=== PATIENT | male | born 1960 | race Caucasian/White ===

== ENCOUNTER 2018-06-27 15:30 | Outpatient (RCR) | payer MEDICARE, MEDICAID, SELFPAY ==
--- NOTE | 2018-03-21 17:32 | HP.PTEVAL ---
Patient's Visit Information SERA RAMSEY is a 57 year old M referred to Physical Therapy by David Chaney with a diagnosis of BACK AND LEG PAIN. Date of Evaluation: 03/21/18 Physical Therapist: Vladimir Elliott PT, - Visit Plan Frequency: 2x /Week Duration: 4 Weeks Plan: POSTURAL EX'S ,DLS ,LE FLEXABLITY NUSTEP - Subjective Subjective: This 57 y/o male presents to physical therapy with back and leg pain . Patient has low back pain entire. Patient has pain symtrical lumbar . Pain described as dull pain ocassional sharp pain. Patient has had epidural injection in past. Patient has cerebral palsey affects leg. Symptoms worse with walking ,standing ,weather ,lifting. Denies parathesia/tingling. Patient sleeping okay at night. Lumbar paion affects QOL and function/demands. VOCATION: [place] [employer]. SOCIAL: single - Pain Bilateral Back Pain Intensity (Out of 10): 2 Pain Intensity Range: 10 - Objective POSTURE: foward posture,valgus knee ER right greater than left ,foot ER ,pelvix assymtries,right leg shorter. GAIT: foward posture trunk flexed ,ER leg and right foot ,decrease hip/knee flexion drags right leg greater than left LBQC. PALPATION: unremarkable. NEURO: hyperreflexia achilles ,patella ,denies parathesia,increase tone hams. FLEXABLITY: hams severe tight. MMT: quads/hams 3/5,hip flexors 3-/5 ,ankle DF 4-/5 - Goals Goal 1:: Independant with HEP Goal Time Frame: 4-6 Weeks Goal 2:: Improve gait with less lumbar pain with community distances Goal Time Frame: 4-6 Weeks Goal 3:: Patient decrease lumbar pain by 50% or greater to improve function Goal Time Frame: 4-6 Weeks Goal 4:: Patient to be able to perform ADL'S and job demands with min limiation with less pain Goal Time Frame: 4-6 Weeks Goal 5:: Patient to improve SUE lumbar score by 5 points or greater . Goal Time Frame: 4-6 Weeks - Rehabilitation Potential Physical Therapy Diagnosis: This patient has symmtrical lumbar pain with contributing factor comorbities with CP along with uses LBQC for gait with decrease strength ,posture thus benifit from skilled PT Rehabilitation Potential: Good - Anticipated Interventions Patient/Client Instruction: Educate patient on: Condition, Plan of Care For the Purpose of:: To decrease pain, To increase ROM, To improve muscle performance and motor function, To improve ability to perform ADL's, To increase tolerance to activity/condition/position, To improve ability of physical actions for home/community/work/leisure, To increase flexibility/ROM, To improve ability to perform tasks related to life management Therapeutic Exercise to Include: Strength training, Flexibilty training, Dynamic Lumbar Stabilization For the Purpose of:: To decrease pain, To improve muscle performance and motor function, To improve ability to perform ADL's, To increase tolerance to activity/condition/position, To improve ability of physical actions for home/community/work/leisure, To decrease soft tissue restriction, To increase flexibility/ROM, To improve ability to perform tasks related to life management IF ES: Yes Cryotherapy (ice pack, ice massage): Yes Thermo therapy (hot pack): Yes Ultrasound (thermal/non thermal): Yes For the Purpose of:: To decrease pain, To increase ROM, To improve nutrient delivery to tissue, To increase oxygenation perfusion, To improve health of tissue, To decrease soft tissue restriction, To improve ability to perform tasks related to life management Thank you for the opportunity to evaluate your patient. For Medicare and Medicare HMO plans, please review the plan of care and approve it. It will need to be FAXED BACK to us at [phone] for Medicare purposes. Please let me know if there are questions or concerns regarding this plan of care. Physician Signature: Date:
--- NOTE | 2018-04-21 17:12 | HP.PTREVAL_ITS ---
David Chaney MD, It has been my pleasure to treat SERA RAMSEY over the last 6 visits for BACK AND LEG PAIN. Please see the progress note below for an update on the physical therapy plan of care! Subjective: Patient stated PT has helped with low back pain. with walking and standing Objective/Function: POSTURE: mod foward posture ,ER right leg ,calcaneal valgus bilateral ankles. GAIT: mild foward posture unsteady ER ,FOOT ER ,trunk extended ,SLOW UNSTEADY ,HIPS/KNEES FLEXED. MMT: QUADS/HAMS 3+/5 RIGHT,LEFT QUADS/HAMS 4-/5,ANKLE 4-/5. FLXABLITY: hams mod tight Plan Plan: Continue with POC interventions 2xweek for 4weeks strengthening. Goals Goal 1:: Independant with HEP Goal Time Frame: 4-6 Weeks Goal Progress: Progressing Goal 2:: Improve gait with less lumbar pain with community distances Goal Time Frame: 4-6 Weeks Goal Progress: Progressing Goal 3:: Patient decrease lumbar pain by 50% or greater to improve function Goal Time Frame: 4-6 Weeks Goal Progress: Progressing Goal 4:: Patient to be able to perform ADL'S and job demands with min limiation with less pain Goal Time Frame: 4-6 Weeks Goal Progress: Progressing Goal 5:: Patient to improve SUE lumbar score by 5 points or greater . Goal Time Frame: 4-6 Weeks Goal Progress: Progressing Anticipated Interventions Patient/Client Instruction: Educate patient on: Condition, Plan of Care For the Purpose of:: To decrease pain, To increase ROM, To improve muscle performance and motor function, To improve ability to perform ADL's, To increase tolerance to activity/condition/position, To improve ability of physical actions for home/community/work/leisure, To increase flexibility/ROM, To improve ability to perform tasks related to life management Therapeutic Exercise to Include: Strength training, Flexibilty training, Dynamic Lumbar Stabilization For the Purpose of:: To decrease pain, To improve muscle performance and motor function, To improve ability to perform ADL's, To increase tolerance to ac tivity/condition/position, To improve ability of physical actions for home/community/work/leisure, To decrease soft tissue restriction, To increase flexibility/ROM, To improve ability to perform tasks related to life management IF ES: Yes Cryotherapy (ice pack, ice massage): Yes Thermo therapy (hot pack): Yes Ultrasound (thermal/non thermal): Yes For the Purpose of:: To decrease pain, To increase ROM, To improve nutrient delivery to tissue, To increase oxygenation perfusion, To improve health of tissue, To decrease soft tissue restriction, To improve ability to perform tasks related to life management Please do not hesitate to contact me at [phone] by phone or if you have questions or concerns regarding this new plan of care! Sincerely, Vladimir Elliott, PT, Cert MDT, OCS
--- NOTE | 2018-05-30 16:06 | HP.PTREVAL ---
David Chaney MD, It has been my pleasure to treat SERA RAMSEY over the last 13 visits for BACK AND LEG PAIN. Please see the progress note below for an update on the physical therapy plan of care! Subjective: Overall ,feeling stronger . Walking better. PT has helped back pain. Back pain can increase with higher. Objective/Function: POSTURE: mild foward posture,hips/knees flexed ,bilateral knee valgus. GAIT: ambulates with bilateral knee valgus ,calaneal valgus slow unsteady. MMT: quads/hams right 3+/5,left 4-/5,ankle 2/5,hip flexion 3+/5. LUMBAR ROM: flexion mod loss,extension mod/severe loss. FLEXABLITY: mod tight Plan Plan: cont with POC interventions 2x week for 4weeks Goals Goal 1:: Independant with HEP Goal Time Frame: 4-6 Weeks Goal Progress: Progressing Goal 2:: Improve gait with less lumbar pain with community distances Goal Time Frame: 4-6 Weeks Goal Progress: Progressing Goal 3:: Patient decrease lumbar pain by 50% or greater to improve function Goal Time Frame: 4-6 Weeks Goal Progress: Progressing Goal 4:: Patient to be able to perform ADL'S and job demands with min limiation with less pain Goal Time Frame: 4-6 Weeks Goal Progress: Progressing Goal 5:: Patient to improve SUE lumbar score by 5 points or greater . Goal Time Frame: 4-6 Weeks Goal Progress: Progressing Anticipated Interventions Patient/Client Instruction: Educate patient on: Condition, Plan of Care For the Purpose of:: To decrease pain, To increase ROM, To improve muscle performance and motor function, To improve ability to perform ADL's, To increase tolerance to activity/condition/position, To improve ability of physical actions for home/community/work/leisure, To increase flexibility/ROM, To improve ability to perform tasks related to life management Therapeutic Exercise to Include: Strength training, Flexibilty training, Dynamic Lumbar Stabilization For the Purpose of:: To decrease pain, To improve muscle performance and motor function, To improve ability to perform ADL's, To increase tolerance to activity/condition/position, To improve ability of physical actions for home/community/work/leisure, To decrease soft tissue restriction, To increase flexibility/ROM, To improve ability to perform tasks related to life management IF ES: Yes Cryotherapy (ice pack, ice massage): Yes Thermo therapy (hot pack): Yes Ultrasound (thermal/non thermal): Yes For the Purpose of:: To decrease pain, To increase ROM, To improve nutrient delivery to tissue, To increase oxygenation perfusion, To improve health of tissue, To decrease soft tissue restriction, To improve ability to perform tasks related to life management Please do not hesitate to contact me at [phone] by phone or if you have questions or concerns regarding this new plan of care! Sincerely, Vladimir Elliott, PT, Cert MDT, OCS
--- NOTE | 2018-08-10 13:07 | HP.PT.NRP ---
HP - Discharge Summary (1) - Patient Information SERA RAMSEY was seen in my office for initial evaluation on 03/21/18. The following Plan of Care was established for this patient: Initial Frequency: 2x /Week Initial Duration: 4 Weeks - Anticipated Interventions Patient/Client Instruction: Educate patient on: Condition, Plan of Care For the Purpose of:: To decrease pain, To increase ROM, To improve muscle performance and motor function, To improve ability to perform ADL's, To increase tolerance to activity/condition/position, To improve ability of physical actions for home/community/work/leisure, To increase flexibility/ROM, To improve ability to perform tasks related to life management Therapeutic Exercise to Include: Strength training, Flexibilty training, Dynamic Lumbar Stabilization For the Purpose of:: To decrease pain, To improve muscle performance and motor function, To improve ability to perform ADL's, To increase tolerance to activity/condition/position, To improve ability of physical actions for home/community/work/leisure, To decrease soft tissue restriction, To increase flexibility/ROM, To improve ability to perform tasks related to life management IF ES: Yes Cryotherapy (ice pack, ice massage): Yes Thermo therapy (hot pack): Yes Ultrasound (thermal/non thermal): Yes For the Purpose of:: To decrease pain, To increase ROM, To improve nutrient delivery to tissue, To increase oxygenation perfusion, To improve health of tissue, To decrease soft tissue restriction, To improve ability to perform tasks related to life management This patient was last seen in our office 06/27/18. Pertinent comments regarding their Physical therapy will appear below: Patient seen for PT for back pain focusing on DLS,POSTURE ,LE STRENGTHENING ,THUS IS D/C TO HEP. At this point I will be discontinuing this patient from physical therapy. I would be happy to see this patient again in the future if found appropriate by the physician. Thank you! Vladimir Elliott, PT, Cert MDT, OCS
== END 2018-06-27 19:00 | disposition home or self-care (01) ==
LOC: PT 15:30
PROVIDERS: Family Provider Internal Medicine; PCP Internal Medicine; Referring Provider Anesthesiology Pain Medicine; Visit Provider Anesthesiology Pain Medicine
DX: M54.5 Low back pain (principal); M79.606 Pain in leg, unspecified
CPT/HCPCS: 97035; 97110; 97162; 97530

== ENCOUNTER → 2020-08-29 11:59 | Outpatient (CLI) | payer MEDICARE, SELFPAY ==
[2014-04-06 13:12] VITALS: BMI 29.1
[2020-08-29 12:32] LABS: Absolute Lymphocyte Count 1.28 X10^3/uL (0.83-4.51); Absolute Neutrophil Count 3.4 X10^3/uL (2.0-7.7); Basophil# 0.08 X10^3/uL; Basophil% 1.5 % (0-1); Eosinophil# 0.17 X10^3/uL; Eosinophils% 3.1 % (0-5); Hematocrit 44.8 % (40-54); Lymphocyte # 1.28 X10^3/ul (0.83-4.51); Lymphocyte % 23.7 % (19-41); Mean Corp Hgb Conc 33.5 g/dL (32-36); Mean Corpuscular Hgb 27.9 pg (27.0-32.0); Mean Corpuscular Volume 83.4 fL (80-94); Mean Platelet Vol. 10.6 fl (6.2-12.0); Monocyte# 0.49 X10^3/uL; Monocyte% 9.1 % (0-10); NRBC Flagged by Analyzer 0 % (0-5); Neutrophil # 3.37 X10^3/uL (2.7-7.7); Neutrophil % 62.4 % (47-70); Platelet Count 296 K/mm3 (150-450); RBC Distribution Width SD 39.4 fl (35.1-43.9); Red Blood Count 5.37 M/mm3 (4.6-6.2); White Blood Count 5.4 K/mm3 (4.4-11.0)
[2020-08-29 13:13] LABS: ALB/GLOB Ratio 1.5 RATIO (0.9-2.4); AST(SGOT) 16 U/L (15-37); Alanine Aminotransfer ALT/SGPT 24 U/L (16-61); Albumin, Serum 4.1 g/dL (3.2-5.0); Alkaline Phosphatase 102 U/L (45-117); Anion Gap 4 (5-15); BUN 22 mg/dL (7-18); BUN/Creat Ratio 27.6 RATIO (10-20); Calcium,Total 9.4 mg/dL (8.5-10.1); Chloride 108 mmol/L (98-107); EST Glomerular Filtration Rate 106 mL/min (>60); Est Glom Filt Rate - Afr Amer 128 mL/min (>60); Globulin 2.8 g/dL (2.2-4.2); Glucose 101 mg/dL (74-106); PSA,Total - Annual Screen 0.83 ng/mL (0.00-4.00); Potassium 3.8 mmol/L (3.5-5.1); Protein, Total 6.9 g/dL (6.4-8.2); Sodium Level 141 mmol/L (136-145); Thyroid Stim Hormone (TSH) 1.84 uIU/mL (0.358-3.74)
[2020-08-29 13:40] LABS: Hepatitis C Antibody Non-Reactive (Nonreactive)
== END ==
PROVIDERS: PCP Family Medicine Geriatric Medicine; Visit Provider Family Medicine Geriatric Medicine
DX: Z00.00 Encounter for general adult medical examination without abnormal findings (principal); R53.83 Other fatigue; Z12.5 Encounter for screening for malignant neoplasm of prostate
CPT/HCPCS: 36415; 80053; 84153; 84443; 85025; 86803; G0103

== ENCOUNTER → 2020-10-02 11:34 | Outpatient (CLI) | payer MEDICARE, SELFPAY ==
[2014-04-06 13:12] VITALS: BMI 29.1
--- NOTE | 2020-10-02 11:39 | RAD_ITS ---
STUDY: X-RAY - ABDOMEN/PELVIS REASON FOR EXAM: Male, 60 years old. Chronic diarrhea. TECHNIQUE: Single AP view of the abdomen / pelvis. COMPARISON: None. FINDINGS: Normal visualized lung bases. There is an unremarkable bowel gas pattern. There is no demonstrated free abdominal air. The visualized liver, spleen and kidneys are grossly normal in size and morphology. Normal soft tissue structures. Rotatory levoscoliosis of the lumbar spine. Mild arthrosis of hips. RAD/Abdomen Single View IMPRESSION: No acute abnormality of the lower chest, abdomen and pelvis. Electronically Signed: Cristobal Degroot MD at 9:15 EDT , Service support ,
== END ==
PROVIDERS: PCP Family Medicine Geriatric Medicine; Referring Provider Family Medicine Geriatric Medicine; Visit Provider Family Medicine Geriatric Medicine
DX: R19.7 Diarrhea, unspecified (principal)
CPT/HCPCS: 74018

== ENCOUNTER → 2020-10-21 14:49 | Outpatient (CLI) | payer MEDICARE, SELFPAY ==
[2014-04-06 13:12] VITALS: BMI 29.1
--- NOTE | 2020-10-21 14:51 | CT_ITS ---
STUDY: LOW DOSE CT LUNG CANCER SCREENING REASON FOR EXAM: Male, 60 years old. 30 year smoker, 1 pack per day, quit smoking x10 years RADIATION DOSAGE (If Supplied By Facility): CTDIvol = ( 3.02 ) mGy, DLP = ( 99.68 ) mGycm TECHNIQUE: No contrast was administered. Low dose technique was utilized (average mAS-38 and kVp 120). 1.25 mm axial source images with a slice interval of 1.25-mm were reconstructed in lung windows. 2.5 mm axial source images with a slice interval of 2.5-mm were reconstructed in lung windows. 5.0 mm axial source images with a slice interval of 5.0-mm were reconstructed in soft tissue windows. Nodule measured using lung windows on PACS and/or independent workstation with automated measurement of minimum and maximum diameter. Nodule measurement reported as average diameter rounded to the nearest whole number. Growth is defined as an increase ins size of greater than 1.5 mm. COMPARISON: None. FINDINGS: Lung windows do not show evidence of a suspicious noncalcified mass or nodule. No organized infiltrate. There is bibasilar atelectasis. Heart size is normal, there are calcified coronary vessels Bony structures show degenerative change. CT/Low Dose CT Lung Screening IMPRESSION: Lung-RADS category 2 - Continue annual screening with LDCT in 12 months. IMPORTANT NOTES FOR USE: ACR Lung-RADS Version 1.1 Assessment Categories Release Date: 2018 Category: Coded 0-4 bases on nodule(s) with highest degree of suspicion. Negative screen is defined as categories 1 and 2; a positive screen is defined as categories 3 and 4. Category 3 and 4A nodules that are unchanged on interval CT should be coded as category 2, and individuals returned to screening in 12 months. Category 4X: Category 3 or 4 nodules with additional imaging findings that increase the suspicion of lung cancer, such as spiculation, GGN that doubles in size in 1 year, enlarged lymph notes, etc. Category Modifiers: S (significant finding unrelated to lung cancer) Electronically Signed: Eligio Murdock MD at 16:25 EDT , Service support ,
== END ==
PROVIDERS: PCP Family Medicine Geriatric Medicine; Referring Provider Family Medicine Geriatric Medicine; Visit Provider Family Medicine Geriatric Medicine
DX: T65.222S Toxic effect of tobacco cigarettes, intentional self-harm, sequela (principal); F17.210 Nicotine dependence, cigarettes, uncomplicated
CPT/HCPCS: 71271

== ENCOUNTER → 2020-12-02 13:54 | Outpatient (CLI) | payer MEDICARE, SELFPAY ==
[2014-04-06 13:12] VITALS: BMI 29.1
[2020-12-02 15:24] LABS: Absolute Lymphocyte Count 1.63 X10^3/uL (0.83-4.51); Absolute Neutrophil Count 3.9 X10^3/uL (2.0-7.7); Basophil# 0.08 X10^3/uL; Basophil% 1.3 % (0-1); Eosinophil# 0.12 X10^3/uL; Eosinophils% 1.9 % (0-5); Hematocrit 46.8 % (40-54); Hemoglobin 15.5 g/dL (13.0-16.5); Lymphocyte # 1.63 X10^3/ul (0.83-4.51); Lymphocyte % 25.5 % (19-41); Mean Corp Hgb Conc 33.1 g/dL (32-36); Mean Corpuscular Hgb 27.6 pg (27.0-32.0); Mean Corpuscular Volume 83.4 fL (80-94); Mean Platelet Vol. 10.8 fl (6.2-12.0); Monocyte# 0.68 X10^3/uL; Monocyte% 10.6 % (0-10); NRBC Flagged by Analyzer 0 % (0-5); Neutrophil # 3.86 X10^3/uL (2.7-7.7); Neutrophil % 60.4 % (47-70); Platelet Count 322 K/mm3 (150-450); RBC Distribution Width CV 13.2 % (11.6-14.6); RBC Distribution Width SD 40.6 fl (35.1-43.9); Red Blood Count 5.61 M/mm3 (4.6-6.2); White Blood Count 6.4 K/mm3 (4.4-11.0)
[2020-12-02 16:07] LABS: ALB/GLOB Ratio 1.2 RATIO (0.9-2.4); AST(SGOT) 26 U/L (15-37); Alanine Aminotransfer ALT/SGPT 52 U/L (16-61); Albumin, Serum 3.8 g/dL (3.2-5.0); Alkaline Phosphatase 93 U/L (45-117); Anion Gap 4 (5-15); BUN 24 mg/dL (7-18); BUN/Creat Ratio 27.8 RATIO (10-20); Chloride 108 mmol/L (98-107); Creatinine, Serum 0.86 mg/dL (0.70-1.30); EST Glomerular Filtration Rate 96 mL/min (>60); Est Glom Filt Rate - Afr Amer 116 mL/min (>60); Globulin 3.3 g/dL (2.2-4.2); Glucose 83 mg/dL (74-106); Potassium 4.3 mmol/L (3.5-5.1); Protein, Total 7.1 g/dL (6.4-8.2); Sodium Level 141 mmol/L (136-145); Thyroid Stim Hormone (TSH) 1.54 uIU/mL (0.358-3.74)
== END ==
PROVIDERS: PCP Family Medicine Geriatric Medicine; Visit Provider Family Medicine Geriatric Medicine
DX: I10 Essential (primary) hypertension (principal)
CPT/HCPCS: 36415; 80053; 84443; 85025

== ENCOUNTER 2020-12-20 13:12 | Emergency (ER) | payer OTHER, MEDICARE, MEDICAID, SELFPAY ==
[2020-12-20 13:14] VITALS: BP 154/92; PULSE 68; RESP 16; TEMP 36.8; O2SAT 97; BMI 27.1
--- NOTE | 2020-12-20 14:37 | ED.VIS.FALL ---
HPI HPI - Fall History of Present Illness Chief Complaint: Fall Informant: patient and spouse/S.O. Narrative Narrative: Patient had a mechanical fall while doing vacuuming today. He states he does have stability and falls. He uses a walker for most activity but he was vacuuming without it. He was not syncopal. He did hit his head. He states he felt dazed for a moment but never lost consciousness. He is on no blood thinners. He never had nausea vomiting numbness tingling or weakness. His friend who is with him and known him for 16 years states that he is acting totally normally. Falling like this would not be uncommon for him. Nothing really makes his symptoms worse. Pressure on the area above his left eye did stop the bleeding. Past medical history includes BPH, high blood pressure and high cholesterol Medication list was reviewed. No known drug allergies. No recent surgeries. PFSH PFSH Home Medications metoprolol tartrate 25 mg PO BID 04/06/14 [History Last Taken Unknown] pravastatin 40 mg PO DAILY 12/20/20 [History Last Taken Unknown] tamsulosin 0.4 mg PO DAILY 12/20/20 [History Last Taken Unknown] Allergy/AdvReac Type Severity Reaction Status Date / Time No Known Allergies Allergy Verified 12/20/20 13:12 Social History Smoking Status: Unknown if ever smoked ROS ROS ED Constitutional Constitutional ED: Denies chills or fever(s) Eyes Eyes: Denies blurry vision, change in vision or diplopia ENT ENT ED: Denies ear pain or rhinorrhea Cardiovascular Cardiovascular: Denies palpitations Respiratory/Chest Respiratory/Chest: Denies cough or dyspnea Gastrointestinal Gastrointestinal: Denies abdominal pain, nausea or vomiting Genitourinary Genitourinary ED: Denies hematuria Musculoskeletal Musculoskeletal: Denies arthralgias, back pain or neck pain Integumentary Denies rash Neurologic Neurologic: Denies headache(s), paresthesias or weakness Hematologic/Lymphatic Hematologic/Lymphatic: Denies easy bleeding or easy bruising Allergic/Immunologic Allergic/Immunologic ED: Denies mouth swelling EXAM Physical Exam Const Vital Signs: 12/20/20 13:14 12/20/20 14:28 Temperature 98.2 F Temperature Source Temporal Pulse Rate 68 Respiratory Rate 16 Respiratory Effort Normal Non-Labored Respiratory Depth Normal Respiratory Pattern Normal Blood Pressure 154/92 H Blood Pressure Mean 112 Pulse Ox 97 Oxygen Delivery Method Room Air Room Air Positive well nourished and well developed General Appearance ED: well developed HEENT HEENT Narrative: Patient has a 2.5 cm laceration lateral and slightly superior to the tip of his left eyebrow. No active bleeding. There is no swelling. There is no step-off. No other signs of head trauma seen. No facial tenderness. No pain with jaw motion. Eyes PERRL and EOMs intact bilaterally Neck full ROM and supple General: Negative for tenderness Chest Wall inspection of chest normal Resp normal respiratory effort and clear to auscultation bilaterally Cardio regular rate and regular rhythm GI non-tender Palpation: soft Back/Spine no CVA tenderness Extremity normal to inspection and full ROM Psych mental status grossly normal Skin Skin Narrative: See above. Trauma: laceration MDM MDM MDM Narrative Medical decision making narrative: Procedure: Closure of laceration: I discussed options with patient. The area around laceration was scrubbed and cleaned. There was slight oozing. This was controlled with pressure. It was elected to close this with tissue adhesive. This was done in 3 separate layers. He tolerated this well. No further swelling. I did explain care and reasons to return. Patient had a mechanical fall. He has history of instability. He is not on blood thinners. He has no neurologic findings. Family finds him acting normally. I do not think CT is needed. Discharge Plan Triage Chief Complaint: Fall ED Provider: Reji Llanes Dx/Rx/DC Orders Clinical Impression: Fall from slip, trip, or stumble, Facial laceration Instructions: ED Mechanical Fall, ED Laceration: Skin Adhesive Prescriptions: No Action metoprolol tartrate 25 MG tablet 25 mg PO BID RF: 0 pravastatin 40 mg Tablet 40 mg PO DAILY RF: 0 tamsulosin 0.4 mg Capsule 0.4 mg PO DAILY RF: 0 Primary Care Provider: Claudio Martinez Chi Referrals: Claudio Martinez Chi, MD [Primary Care Provider] - 3-5 Days if not improving Disposition Disposition: Home, Self Care
[2020-12-20 14:55] VITALS: BP 150/87; PULSE 71; RESP 16; O2SAT 100
== END 2020-12-20 14:58 | disposition home or self-care (01) ==
LOC: ED 14:44
PROVIDERS: Emergency Provider Emergency Medicine; PCP Family Medicine Geriatric Medicine
DX: S01.81XA Laceration without foreign body of other part of head, initial encounter (principal); E78.00 Pure hypercholesterolemia, unspecified; I10 Essential (primary) hypertension; N40.0 Benign prostatic hyperplasia without lower urinary tract symptoms; W01.0XXA Fall on same level from slipping, tripping and stumbling without subsequent striking against object, initial encounter; Z79.899 Other long term (current) drug therapy
CPT/HCPCS: G0168; 99282

== ENCOUNTER → 2021-02-24 13:14 | Outpatient (CLI) | payer MEDICARE, MEDICAID, SELFPAY ==
[2021-02-24 16:28] LABS: Absolute Lymphocyte Count 1.64 X10^3/uL (0.83-4.51); Absolute Neutrophil Count 5.1 X10^3/uL (2.0-7.7); Basophil# 0.08 X10^3/uL; Eosinophil# 0.05 X10^3/uL; Eosinophils% 0.6 % (0-5); Hematocrit 45.6 % (40-54); Hemoglobin 15.6 g/dL (13.0-16.5); Lymphocyte # 1.64 X10^3/ul (0.83-4.51); Lymphocyte % 20.9 % (19-41); Mean Corp Hgb Conc 34.2 g/dL (32-36); Mean Corpuscular Hgb 28.8 pg (27.0-32.0); Mean Corpuscular Volume 84.3 fL (80-94); Mean Platelet Vol. 10.6 fl (6.2-12.0); Monocyte# 0.91 X10^3/uL; Monocyte% 11.6 % (0-10); NRBC Flagged by Analyzer 0 % (0-5); Neutrophil # 5.11 X10^3/uL (2.7-7.7); Neutrophil % 65.4 % (47-70); Platelet Count 332 K/mm3 (150-450); RBC Distribution Width CV 13.1 % (11.6-14.6); RBC Distribution Width SD 40.1 fl (35.1-43.9); Red Blood Count 5.41 M/mm3 (4.6-6.2); White Blood Count 7.8 K/mm3 (4.4-11.0)
[2021-02-24 16:50] LABS: ALB/GLOB Ratio 1.1 RATIO (0.9-2.4); AST(SGOT) 14 U/L (15-37); Alanine Aminotransfer ALT/SGPT 31 U/L (16-61); Albumin, Serum 3.7 g/dL (3.2-5.0); Alkaline Phosphatase 96 U/L (45-117); Anion Gap 8 (5-15); BUN 18 mg/dL (7-18); BUN/Creat Ratio 22.2 RATIO (10-20); Calcium,Total 8.8 mg/dL (8.5-10.1); Chloride 107 mmol/L (98-107); Creatinine, Serum 0.81 mg/dL (0.70-1.30); EST Glomerular Filtration Rate 103 mL/min (>60); Est Glom Filt Rate - Afr Amer 125 mL/min (>60); Globulin 3.4 g/dL (2.2-4.2); Glucose 99 mg/dL (74-106); Potassium 3.7 mmol/L (3.5-5.1); Protein, Total 7.1 g/dL (6.4-8.2); Sodium Level 141 mmol/L (136-145); Thyroid Stim Hormone (TSH) 1.98 uIU/mL (0.358-3.74)
== END ==
PROVIDERS: PCP Family Medicine Geriatric Medicine; Visit Provider Family Medicine Geriatric Medicine
DX: I10 Essential (primary) hypertension (principal)
CPT/HCPCS: 36415; 80053; 84443; 85025

== ENCOUNTER 2021-05-28 13:13 | Outpatient (CLI) | payer MEDICARE, MEDICAID, SELFPAY ==
--- NOTE | 2021-05-28 13:39 | RAD_ITS ---
STUDY: X-RAY - LEFT FOOT CLINICAL: Male, 61 years old. Pain following a fall. TECHNIQUE: 3 view(s) of the foot. COMPARISON: None. FINDINGS: Normal talus, calcaneus, and tarsal bones. Normal visualized subtalar, talonavicular, calcaneocuboid, tarsal and tarsometatarsal articulations. Normal metatarsi. Normal metatarsophalangeal joint of the great toe. Normal tibial and fibular sesamoid bones. Normal interphalangeal joint of the great toe. I suspect a nondisplaced fracture along the distal aspect of the proximal phalanx of the great toe. Normal second through fifth metatarsophalangeal joints. Normal interphalangeal joints and phalanges of the lesser toes. Soft tissue swelling. RAD/Foot min 3 Views IMPRESSION: I suspect a nondisplaced fracture along the distal aspect of the proximal phalanx of the great toe with overlying soft tissue swelling. Electronically Signed: Josafat Leyva MD at 14:27 EST ,
[2021-05-28 16:12] LABS: Absolute Neutrophil Count 6.2 X10^3/uL (2.0-7.7); Basophil# 0.08 X10^3/uL; Basophil% 0.9 % (0-1); Eosinophil# 0.06 X10^3/uL; Eosinophils% 0.7 % (0-5); Hematocrit 46.9 % (40-54); Hemoglobin 15.7 g/dL (13.0-16.5); Lymphocyte % 12.8 % (19-41); Mean Corp Hgb Conc 33.5 g/dL (32-36); Mean Corpuscular Hgb 28.6 pg (27.0-32.0); Mean Corpuscular Volume 85.4 fL (80-94); Mean Platelet Vol. 10.6 fl (6.2-12.0); Monocyte# 1.12 X10^3/uL; Monocyte% 13.1 % (0-10); NRBC Flagged by Analyzer 0 % (0-5); Neutrophil # 6.19 X10^3/uL (2.7-7.7); Neutrophil % 72.2 % (47-70); Platelet Count 357 K/mm3 (150-450); RBC Distribution Width CV 12.8 % (11.6-14.6); RBC Distribution Width SD 39.6 fl (35.1-43.9); Red Blood Count 5.49 M/mm3 (4.6-6.2); White Blood Count 8.6 K/mm3 (4.4-11.0)
[2021-05-28 16:26] LABS: Erythrocyte Sedimentation Rate 13 mm/hr (0-20)
[2021-05-29 08:11] LABS: ALB/GLOB Ratio 1.1 RATIO (0.9-2.4); AST(SGOT) 25 U/L (15-37); Alanine Aminotransfer ALT/SGPT 40 U/L (16-61); Alkaline Phosphatase 111 U/L (45-117); Anion Gap 6 (5-15); BUN 16 mg/dL (7-18); BUN/Creat Ratio 18.5 RATIO (10-20); Calcium,Total 9.1 mg/dL (8.5-10.1); Chloride 107 mmol/L (98-107); Creatinine, Serum 0.87 mg/dL (0.70-1.30); EST Glomerular Filtration Rate 96 mL/min (>60); Est Glom Filt Rate - Afr Amer 116 mL/min (>60); Globulin 3.6 g/dL (2.2-4.2); Glucose 76 mg/dL (74-106); Potassium 4.1 mmol/L (3.5-5.1); Protein, Total 7.6 g/dL (6.4-8.2); Sodium Level 140 mmol/L (136-145); Thyroid Stim Hormone (TSH) 1.64 uIU/mL (0.358-3.74); Uric Acid 6.4 mg/dL (3.5-7.2)
== END 2021-05-28 23:59 | disposition short-term general hospital (02) ==
PROVIDERS: PCP Family Medicine Geriatric Medicine; Referring Provider Family Medicine Geriatric Medicine; Visit Provider Family Medicine Geriatric Medicine
DX: M79.672 Pain in left foot (principal); I10 Essential (primary) hypertension; M10.9 Gout, unspecified
CPT/HCPCS: 36415; 73630; 80053; 84443; 84550; 85025; 85652; 86140

== ENCOUNTER → 2021-09-03 | Outpatient (CLI) | payer MEDICARE, MEDICAID, SELFPAY ==
[2021-09-03 15:46] LABS: Absolute Neutrophil Count 4.6 X10^3/uL (2.0-7.7); Basophil# 0.08 X10^3/uL; Basophil% 1.2 % (0-1); Eosinophil# 0.14 X10^3/uL; Hematocrit 46.3 % (40-54); Hemoglobin 15.9 g/dL (13.0-16.5); Lymphocyte % 21.9 % (19-41); Mean Corp Hgb Conc 34.3 g/dL (32-36); Mean Corpuscular Volume 84.5 fL (80-94); Mean Platelet Vol. 10.2 fl (6.2-12.0); Monocyte# 0.52 X10^3/uL; Monocyte% 7.6 % (0-10); NRBC Flagged by Analyzer 0 % (0-5); Neutrophil # 4.58 X10^3/uL (2.7-7.7); Neutrophil % 66.7 % (47-70); Platelet Count 349 K/mm3 (150-450); RBC Distribution Width SD 40.2 fl (35.1-43.9); Red Blood Count 5.48 M/mm3 (4.6-6.2); White Blood Count 6.9 K/mm3 (4.4-11.0)
[2021-09-03 16:10] LABS: ALB/GLOB Ratio 1.2 RATIO (0.9-2.4); AST(SGOT) 21 U/L (15-37); Alanine Aminotransfer ALT/SGPT 40 U/L (16-61); Albumin, Serum 3.8 g/dL (3.2-5.0); Alkaline Phosphatase 95 U/L (45-117); Anion Gap 4 (5-15); BUN 14 mg/dL (7-18); BUN/Creat Ratio 17.3 RATIO (10-20); Calcium,Total 9.2 mg/dL (8.5-10.1); Chloride 108 mmol/L (98-107); Creatinine, Serum 0.81 mg/dL (0.70-1.30); EST Glomerular Filtration Rate 103 mL/min (>60); Est Glom Filt Rate - Afr Amer 125 mL/min (>60); Globulin 3.3 g/dL (2.2-4.2); Glucose 110 mg/dL (74-106); PSA,Total - Annual Screen 0.87 ng/mL (0.00-4.00); Potassium 4.2 mmol/L (3.5-5.1); Protein, Total 7.1 g/dL (6.4-8.2); Sodium Level 140 mmol/L (136-145); Thyroid Stim Hormone (TSH) 1.14 uIU/mL (0.358-3.74); Uric Acid 6.8 mg/dL (3.5-7.2)
== END | disposition home or self-care (01) ==
LOC: POLAB3 14:18
PROVIDERS: PCP Family Medicine Geriatric Medicine; Visit Provider Family Medicine Geriatric Medicine
DX: I10 Essential (primary) hypertension (principal); M10.9 Gout, unspecified; Z12.5 Encounter for screening for malignant neoplasm of prostate
CPT/HCPCS: 36415; 80053; 84153; 84443; 84550; 85025; G0103

== ENCOUNTER 2022-01-21 13:30 | Outpatient (RCR) | payer MEDICARE, MEDICAID, SELFPAY ==
--- NOTE | 2021-11-07 15:13 | HP.PTEVAL ---
Patient's Visit Information SEAR RAMSEY is a 61 year old M referred to Physical Therapy by Dr. David Chaney MD with a diagnosis of LUMBAR RADICLOPATHY. Date of Evaluation: 11/07/21 Physical Therapist: Vladimir Elliott PT, Cert MDT, OCS - Visit Plan Frequency: 2x /Week Duration: 4 Weeks Plan: PT INTERVETIONS MANUAL STRETCHING BLE HAMSTRINGS/HIP/TRUNK,DLS ,POSTURAL EX'S AND LUMBAR ROM - Subjective This 61 y/o male presents to physical therapy with lumbar radiculopathy.. Patient lumbar radiculopathy for many years right leg. Patient most recently symptoms progressively worse . Seen Pain management with epidural injection~ 2weeks ago . Patient has h/o epidural injection in past. Location pain symmetrical back and posterior leg. Aggravating factors working ,standing ,AM ,and sitting. Alleviating teylonal 2x/day. Denies paresthesia/tingling. C/O pins /needles in legs possible neuropathy. Patient has been falling most recent caused by weakness and back pain. Patient has difficulty sleeping. Symptoms affects QOL and function. Lives apartment ,has life alert ,stays on 1st floor ,shower is walk in and grab bars. Patient has been using walker past 2 years and with QC in home but limited due to falling when using quad cane. Patient has scooter when shopping .[facility] pays bills and has assist with grocery store. PMH : CERBERAL PALSEY ,decrease vision and color blind. SOCAIL: single lives alone. [place] Objective POSTURE: posterior pelvic tilt ,asymmetries pelvis. LEG LENGTH: leg length asymmetries. NEURO: severe spasticity lower extremity , hyperreflexia Achilles and patella. GAIT: Ambulates with walker with spastic lower legs slow dain ,decrease step length with AFO's. FLEXABILITY: severe hamstring tightness. MMT: ( peak force) quads 12.5,hamstrings 12.4,hip flexion right 0 left 5.4,ankle 0. LUMBAR ROM: flexion/extension severe loss - Special Tests L/S Slump test left side: Negative L/S Slump test right side: Negative L/S Left Straight Leg Raise: Negative L/S Right Straight Leg Raise: Negative - Balance/Special Test Scores Oswestry Low Back Score: 31 - Goals Goal 1:: Patient to be I with HEP for back Goal Time Frame: 4-6 Weeks Goal 2:: Patient to improve functional gait with fww with less pain Goal Time Frame: 4-6 Weeks Goal 3:: Patient to demonstrate 50% improvement with increase function and less pain . Goal Time Frame: 4-6 Weeks Goal 4:: Patient improve functional lower extremity mobility to improve function with walk and transfers Goal Time Frame: 4-6 Weeks Goal 5:: Patient to improve back oswestry score by 5 points to improve QOL Goal Time Frame: 4-6 Weeks - Rehabilitation Potential Physical Therapy Diagnosis: Patient has cerebral palsy with h/o back pain which has progressively worse with increase pain ,poor lumbar ROM ,decrease strength ,tight spastic lower legs impairs walking and function thus benefit from skilled PT Rehabilitation Potential: Good - Anticipated Interventions Patient/Client Instruction: Educate patient on: Condition, Plan of Care For the Purpose of:: To decrease pain, To increase ROM, To improve muscle performance and motor function, To improve ability to perform ADL's, To increase tolerance to activity/condition/position, To improve ability of physical actions for home/community/work/leisure, To improve gait and locomotor functions, To improve health of tissue, To decrease soft tissue restriction, To increase flexibility/ROM, To improve endurance, To improve balance, To improve safety with gait, To improve tolerance to ADL's Therapeutic Exercise to Include: Strength training, Balance training, Body mechanics, Postural training, Flexibilty training, Gait and locomotor training, Active ROM For the Purpose of:: To decrease pain, To increase ROM, To improve muscle performance and motor function, To improve ability to perform ADL's, To increase tolerance to activity/condition/position, To improve ability of physical actions for home/community/work/leisure, To improve health of tissue, To decrease soft tissue restriction, To increase flexibility/ROM, To improve endurance, To improve balance, To assume or resume ADL's, To improve tolerance to ADL's Manual Therapy Techniques to Include: Passive ROM Comment: LE For the Purpose of:: To decrease swelling/inflammation, To improve health of tissue, To decrease soft tissue restriction, To increase flexibility/ROM Thank you for the opportunity to evaluate your patient. For Medicare and Medicare HMO plans, please review the plan of care and approve it. It will need to be FAXED BACK to us at [phone] for Medicare purposes. For Medicare only, by signing this I certify the plan of care. Please let me know if there are questions or concerns regarding this plan of care. Physician Signature: Date:
--- NOTE | 2021-12-24 15:03 | HP.PTREVAL ---
Dr. David Chaney MD, It has been my pleasure to treat SERA RAMSEY over the last 8 visits for LUMBAR RADICLOPATHY. Please see the progress note below for an update on the physical therapy plan of care! Subjective: Seen Dr thought back was not as tight. Walking better but has been using walker . No recent falls but needs walker for support Objective/Function: POSTURE: posterior tilt rounded shoulder head forward. NEURO: hyperreflexia patella ,achilles ,increase spasticity Right leg > left ,. PROM: severe tight hamstrings hip adductors hip flexion with increase tone right > left. MMT: quads 12.8,hamstrings 12.6 ,hip flexion 6.8 right ,left 5.3. GAIT: ambulates with slow dain increase spasticity right > left with dragging right leg ,adduction right > left Plan Plan: CONT WITH POC. PT INTERVETIONS MANUAL STRETCHING BLE HAMSTRINGS/HIP/TRUNK, DLS, POSTURAL EX'S AND LUMBAR ROM Balance/Gait/Functional tests - Balance/Special Test Scores Oswestry Low Back Score: 25 Goals Goal 1:: Patient to be I with HEP for back Goal Time Frame: 4-6 Weeks Goal Progress: Progressing Goal 2:: Patient to improve functional gait with fww with less pain Goal Time Frame: 4-6 Weeks Goal Progress: Progressing Goal 3:: Patient to demonstrate 50% improvement with increase function and less pain . Goal Time Frame: 4-6 Weeks Goal Progress: Progressing Goal 4:: Patient improve functional lower extremity mobility to improve function with walk and transfers Goal Time Frame: 4-6 Weeks Goal Progress: Progressing Goal 5:: Patient to improve back oswestry score by 5 points to improve QOL Goal Time Frame: 4-6 Weeks Goal Progress: Progressing Anticipated Interventions Patient/Client Instruction: Educate patient on: Condition, Plan of Care For the Purpose of:: To decrease pain, To increase ROM, To improve muscle performance and motor function, To improve ability to perform ADL's, To increase tolerance to activity/condition/position, To improve ability of physical actions for home/community/work/leisure, To improve gait and locomotor functions, To improve health of tissue, To decrease soft tissue restriction, To increase flexibility/ROM, To improve endurance, To improve balance, To improve safety with gait, To improve tolerance to ADL's Therapeutic Exercise to Include: Strength training, Balance training, Body mechanics, Postural training, Flexibilty training, Gait and locomotor training, Active ROM For the Purpose of:: To decrease pain, To increase ROM, To improve muscle performance and motor function, To improve ability to perform ADL's, To increase tolerance to activity/condition/position, To improve ability of physical actions for home/community/work/leisure, To improve health of tissue, To decrease soft tissue restriction, To increase flexibility/ROM, To improve endurance, To improve balance, To assume or resume ADL's, To improve tolerance to ADL's Manual Therapy Techniques to Include: Passive ROM Comment: LE For the Purpose of:: To decrease swelling/inflammation, To improve health of tissue, To decrease soft tissue restriction, To increase flexibility/ROM Please do not hesitate to contact me at [phone] by phone or if you have questions or concerns regarding this new plan of care! Sincerely, Vladimir Elliott, PT, Cert MDT, OCS
--- NOTE | 2022-04-21 10:14 | HP.PT.NRP ---
SERA RAMSEY was seen in my office for initial evaluation on 11/07/21. The following Plan of Care was established for this patient: Initial Frequency: 2x /Week Initial Duration: 4 Weeks Patient/Client Instruction: Educate patient on: Condition, Plan of Care For the Purpose of:: To decrease pain, To increase ROM, To improve muscle performance and motor function, To improve ability to perform ADL's, To increase tolerance to activity/condition/position, To improve ability of physical actions for home/community/work/leisure, To improve gait and locomotor functions, To improve health of tissue, To decrease soft tissue restriction, To increase flexibility/ROM, To improve endurance, To improve balance, To improve safety with gait, To improve tolerance to ADL's Therapeutic Exercise to Include: Strength training, Balance training, Body mechanics, Postural training, Flexibilty training, Gait and locomotor training, Active ROM For the Purpose of:: To decrease pain, To increase ROM, To improve muscle performance and motor function, To improve ability to perform ADL's, To increase tolerance to activity/condition/position, To improve ability of physical actions for home/community/work/leisure, To improve health of tissue, To decrease soft tissue restriction, To increase flexibility/ROM, To improve endurance, To improve balance, To assume or resume ADL's, To improve tolerance to ADL's Manual Therapy Techniques to Include: Passive ROM Comment: VIN For the Purpose of:: To decrease swelling/inflammation, To improve health of tissue, To decrease soft tissue restriction, To increase flexibility/ROM This patient was last seen in our office . Pertinent comments regarding their Physical therapy will appear below: Patient was seen for PT for back pain for postural ex's ,DLS ,flexibility and strengthening doing better thus is d/c At this point I will be discontinuing this patient from physical therapy. I would be happy to see this patient again in the future if found appropriate by the physician. Thank you! Vladimir Elliott, PT, Cert MDT, OCS Balance/Gait/Functional tests - Balance/Special Test Scores Oswestry Low Back Score: 23
== END 2022-01-21 19:00 | disposition home or self-care (01) ==
LOC: PT 13:30
PROVIDERS: PCP Family Medicine Geriatric Medicine; Visit Provider Anesthesiology Pain Medicine
DX: M54.16 Radiculopathy, lumbar region (principal)
CPT/HCPCS: 97110; 97162; 97530

== ENCOUNTER → 2022-04-14 | Outpatient (CLI) | payer MEDICARE, MEDICAID, SELFPAY ==
[2022-04-14 13:19] LABS: Absolute Lymphocyte Count 1.33 X10^3/uL (0.83-4.51); Absolute Neutrophil Count 3.1 X10^3/uL (2.0-7.7); Basophil# 0.06 X10^3/uL; Basophil% 1.2 % (0-1); Eosinophil# 0.08 X10^3/uL; Eosinophils% 1.6 % (0-5); Hematocrit 44.9 % (40-54); Hemoglobin 15.2 g/dL (13.0-16.5); Lymphocyte # 1.33 X10^3/ul (0.83-4.51); Lymphocyte % 25.8 % (19-41); Mean Corp Hgb Conc 33.9 g/dL (32-36); Mean Corpuscular Hgb 28.1 pg (27.0-32.0); Mean Platelet Vol. 10.7 fl (6.2-12.0); Monocyte# 0.45 X10^3/uL; Monocyte% 8.7 % (0-10); NRBC Flagged by Analyzer 0 % (0-5); Neutrophil # 3.14 X10^3/uL (2.7-7.7); Neutrophil % 60.8 % (47-70); Platelet Count 316 K/mm3 (150-450); RBC Distribution Width CV 12.8 % (11.6-14.6); RBC Distribution Width SD 38.1 fl (35.1-43.9); Red Blood Count 5.41 M/mm3 (4.6-6.2); White Blood Count 5.2 K/mm3 (4.4-11.0)
[2022-04-14 14:56] LABS: ALB/GLOB Ratio 1.4 RATIO (0.9-2.4); AST(SGOT) 15 U/L (15-37); Alanine Aminotransfer ALT/SGPT 28 U/L (16-61); Alkaline Phosphatase 84 U/L (45-117); Anion Gap 9 (5-15); BUN 22 mg/dL (7-18); BUN/Creat Ratio 26.2 RATIO (10-20); Calcium,Total 9.1 mg/dL (8.5-10.1); Chloride 108 mmol/L (98-107); Creatinine, Serum 0.84 mg/dL (0.70-1.30); EST Glomerular Filtration Rate 99 mL/min (>60); Est Glom Filt Rate - Afr Amer 119 mL/min (>60); Globulin 2.9 g/dL (2.2-4.2); Glucose 94 mg/dL (74-106); Potassium 4.1 mmol/L (3.5-5.1); Protein, Total 6.9 g/dL (6.4-8.2); Sodium Level 141 mmol/L (136-145); Thyroid Stim Hormone (TSH) 1.66 uIU/mL (0.358-3.74)
== END | disposition home or self-care (01) ==
LOC: POLAB3 10:56
PROVIDERS: PCP Family Medicine Geriatric Medicine; Visit Provider Family Medicine Geriatric Medicine
DX: E55.9 Vitamin D deficiency, unspecified (principal); R53.83 Other fatigue; Z12.5 Encounter for screening for malignant neoplasm of prostate
CPT/HCPCS: 36415; 80053; 82306; 84443; 85025

== ENCOUNTER → 2022-08-27 | Outpatient (CLI) | payer MEDICARE, MEDICAID, SELFPAY ==
--- NOTE | 2022-08-27 09:55 | RAD_ITS ---
STUDY: X-RAY - ABDOMEN/PELVIS REASON FOR EXAM: Male, 62 years old. FECAL IMPACTION TECHNIQUE: 3 AP supine views of the abdomen and pelvis. COMPARISON: October 02, 2020 KUB abdomen FINDINGS: Normal visualized lung bases. There is a gassy appearance of the tortuous sigmoid colon. There is a decompressed gassy appearance of the descending colon. There is no demonstrated free abdominal air. The visualized liver, spleen are grossly normal in size and morphology. The kidneys are obscured by bowel gas. Normal soft tissue structures. There are diffuse degenerative changes of the visualized lumbar spine. RAD/Abdomen Single View IMPRESSION: Gassy appearance of the colon. No significant fecal burden. Electronically Signed: Patty Lebron MD at 15:07 EDT ,
[2022-08-27 13:13] LABS: Absolute Neutrophil Count 3.1 X10^3/uL (2.0-7.7); Basophil# 0.06 X10^3/uL; Basophil% 1.2 % (0-1); Hematocrit 45.8 % (40-54); Lymphocyte % 27.6 % (19-41); Mean Corp Hgb Conc 32.8 g/dL (32-36); Mean Corpuscular Hgb 28.1 pg (27.0-32.0); Mean Corpuscular Volume 85.8 fL (80-94); Mean Platelet Vol. 10.9 fl (6.2-12.0); Monocyte# 0.42 X10^3/uL; Monocyte% 8.3 % (0-10); NRBC Flagged by Analyzer 0 % (0-5); Neutrophil # 3.08 X10^3/uL (2.7-7.7); Neutrophil % 60.5 % (47-70); Platelet Count 295 K/mm3 (150-450); RBC Distribution Width CV 13.2 % (11.6-14.6); RBC Distribution Width SD 40.6 fl (35.1-43.9); Red Blood Count 5.34 M/mm3 (4.6-6.2); White Blood Count 5.1 K/mm3 (4.4-11.0)
[2022-08-27 13:33] LABS: ALB/GLOB Ratio 1.3 RATIO (0.9-2.4); AST(SGOT) 20 U/L (15-37); Alanine Aminotransfer ALT/SGPT 30 U/L (16-61); Albumin, Serum 3.9 g/dL (3.2-5.0); Alkaline Phosphatase 103 U/L (45-117); Anion Gap 1 (5-15); BUN 17 mg/dL (7-18); BUN/Creat Ratio 19.1 RATIO (10-20); Calcium,Total 8.6 mg/dL (8.5-10.1); Chloride 111 mmol/L (98-107); Creatinine, Serum 0.89 mg/dL (0.70-1.30); EST Glomerular Filtration Rate 92 mL/min (>60); Est Glom Filt Rate - Afr Amer 111 mL/min (>60); Globulin 3.1 g/dL (2.2-4.2); Glucose 89 mg/dL (74-106); Potassium 3.9 mmol/L (3.5-5.1); Sodium Level 139 mmol/L (136-145)
== END | disposition home or self-care (01) ==
PROVIDERS: PCP Family Medicine Geriatric Medicine; Referring Provider Family Medicine Geriatric Medicine; Visit Provider Family Medicine Geriatric Medicine
DX: I10 Essential (primary) hypertension (principal); K56.41 Fecal impaction
CPT/HCPCS: 36415; 74018; 80053; 85025

== ENCOUNTER → 2022-09-04 | Outpatient (CLI) | payer MEDICARE, MEDICAID, SELFPAY ==
[2022-09-04 13:38] LABS: Absolute Lymphocyte Count 1.33 X10^3/uL (0.83-4.51); Absolute Neutrophil Count 3.4 X10^3/uL (2.0-7.7); Basophil# 0.06 X10^3/uL; Basophil% 1.1 % (0-1); Eosinophil# 0.12 X10^3/uL; Eosinophils% 2.2 % (0-5); Hematocrit 44.5 % (40-54); Hemoglobin 15.1 g/dL (13.0-16.5); Lymphocyte # 1.33 X10^3/ul (0.83-4.51); Lymphocyte % 24.9 % (19-41); Mean Corp Hgb Conc 33.9 g/dL (32-36); Mean Corpuscular Hgb 28.6 pg (27.0-32.0); Mean Corpuscular Volume 84.3 fL (80-94); Monocyte# 0.46 X10^3/uL; Monocyte% 8.6 % (0-10); NRBC Flagged by Analyzer 0 % (0-5); Neutrophil # 3.36 X10^3/uL (2.7-7.7); Platelet Count 280 K/mm3 (150-450); RBC Distribution Width CV 13.2 % (11.6-14.6); RBC Distribution Width SD 40.3 fl (35.1-43.9); Red Blood Count 5.28 M/mm3 (4.6-6.2); White Blood Count 5.3 K/mm3 (4.4-11.0)
[2022-09-04 13:57] LABS: ALB/GLOB Ratio 1.2 RATIO (0.9-2.4); AST(SGOT) 25 U/L (15-37); Alanine Aminotransfer ALT/SGPT 32 U/L (16-61); Albumin, Serum 3.7 g/dL (3.2-5.0); Alkaline Phosphatase 106 U/L (45-117); Anion Gap 5 (5-15); BUN 14 mg/dL (7-18); BUN/Creat Ratio 19.2 RATIO (10-20); Calcium,Total 8.8 mg/dL (8.5-10.1); Chloride 106 mmol/L (98-107); Creatinine, Serum 0.73 mg/dL (0.70-1.30); EST Glomerular Filtration Rate 116 mL/min (>60); Est Glom Filt Rate - Afr Amer 141 mL/min (>60); Glucose 100 mg/dL (74-106); Potassium 3.5 mmol/L (3.5-5.1); Protein, Total 6.7 g/dL (6.4-8.2); Sodium Level 141 mmol/L (136-145); Thyroid Stim Hormone (TSH) 2.17 uIU/mL (0.358-3.74)
== END | disposition home or self-care (01) ==
LOC: POLAB3 10:41
PROVIDERS: PCP Family Medicine Geriatric Medicine; Visit Provider Family Medicine Geriatric Medicine
DX: I10 Essential (primary) hypertension (principal)
CPT/HCPCS: 36415; 80053; 84443; 85025

== ENCOUNTER → 2023-05-12 | Outpatient (CLI) | payer MEDICARE, MEDICAID, SELFPAY ==
[2023-05-12 10:36] LABS: Absolute Lymphocyte Count 1.44 X10^3/uL (0.83-4.51); Basophil# 0.05 X10^3/uL; Basophil% 0.8 % (0-1); Eosinophil# 0.21 X10^3/uL; Eosinophils% 3.3 % (0-5); Hematocrit 46.3 % (40-54); Hemoglobin 15.5 g/dL (13.0-16.5); Lymphocyte # 1.44 X10^3/ul (0.83-4.51); Lymphocyte % 22.9 % (19-41); Mean Corp Hgb Conc 33.5 g/dL (32-36); Mean Corpuscular Hgb 28.1 pg (27.0-32.0); Monocyte# 0.53 X10^3/uL; Monocyte% 8.4 % (0-10); NRBC Flagged by Analyzer 0 % (0-5); Neutrophil # 4.02 X10^3/uL (2.7-7.7); Neutrophil % 64.1 % (47-70); Platelet Count 313 K/mm3 (150-450); RBC Distribution Width CV 13.2 % (11.6-14.6); RBC Distribution Width SD 40.4 fl (35.1-43.9); Red Blood Count 5.51 M/mm3 (4.6-6.2); White Blood Count 6.3 K/mm3 (4.4-11.0)
[2023-05-12 11:21] LABS: ALB/GLOB Ratio 1.2 RATIO (0.9-2.4); AST(SGOT) 22 U/L (15-37); Alanine Aminotransfer ALT/SGPT 34 U/L (16-61); Albumin, Serum 3.8 g/dL (3.2-5.0); Alkaline Phosphatase 109 U/L (45-117); Anion Gap 3 (5-15); BUN 28 mg/dL (7-18); BUN/Creat Ratio 34.9 RATIO (10-20); Calcium,Total 9.5 mg/dL (8.5-10.1); Chloride 112 mmol/L (98-107); Cholesterol 154 mg/dL (200); EST Glomerular Filtration Rate 104 mL/min (>60); Est Glom Filt Rate - Afr Amer 126 mL/min (>60); Globulin 3.3 g/dL (2.2-4.2); Glucose 110 mg/dL (74-106); High Density Lipoprotein 29 mg/dL; PSA,Total - Annual Screen 0.88 ng/mL (0.00-4.00); Potassium 3.9 mmol/L (3.5-5.1); Protein, Total 7.1 g/dL (6.4-8.2); Sodium Level 143 mmol/L (136-145); Thyroid Stim Hormone (TSH) 1.36 uIU/mL (0.358-3.74); Triglycerides 156 mg/dL; Very Low Density Lipoprotein 31 mg/dL (5-40)
== END | disposition home or self-care (01) ==
PROVIDERS: PCP Family Medicine Geriatric Medicine; Visit Provider Family Medicine Geriatric Medicine
DX: I10 Essential (primary) hypertension (principal); E78.5 Hyperlipidemia, unspecified; Z12.5 Encounter for screening for malignant neoplasm of prostate
CPT/HCPCS: 36415; 80053; 80061; 84153; 84443; 85025; G0103

== ENCOUNTER → 2023-05-27 | Outpatient (CLI) | payer MEDICARE, MEDICAID, SELFPAY ==
--- NOTE | 2023-05-27 13:51 | CT_ITS ---
STUDY: LOW DOSE CT LUNG CANCER SCREENING REASON FOR EXAM: Male, 63 years old. One and one half pack per day smoker x37 years RADIATION DOSAGE (If Supplied By Facility): CTDIvol = ( 2.39 ) mGy, DLP = ( 131.00 ) mGycm TECHNIQUE: No contrast was administered. Low dose technique was utilized (average mAS-38 and kVp 120). 1.25 mm axial source images with a slice interval of 1.25-mm were reconstructed in lung windows. 2.5 mm axial source images with a slice interval of 2.5-mm were reconstructed in lung windows. 5.0 mm axial source images with a slice interval of 5.0-mm were reconstructed in soft tissue windows. COMPARISON: 10/21/2020 FINDINGS: Lung windows show the lungs to be mildly hyperexpanded with chronic interstitial changes in both lung gavin along with interstitial edema. There is no organized infiltrate, effusion, or suspicious noncalcified mass or nodule. Limited soft tissue windows show normal-appearing thyroid gland. No suspicious adenopathy. There are calcified coronary vessels. Limited cuts through the upper abdomen do not show a suspicious abnormality, there are multiple gallstones noted. Bony structures show degenerative change CT/Low Dose CT Lung Screening IMPRESSION: Lung-RADS category 2 - Continue annual screening with LDCT in 12 months. IMPORTANT NOTES FOR USE: ACR Lung-RADS Version 1.1 Assessment Categories Release Date: 2018 Category: Coded 0-4 bases on nodule(s) with highest degree of suspicion. Negative screen is defined as categories 1 and 2; a positive screen is defined as categories 3 and 4. Category 3 and 4A nodules that are unchanged on interval CT should be coded as category 2, and individuals returned to screening in 12 months. Category 4X: Category 3 or 4 nodules with additional imaging findings that increase the suspicion of lung cancer, such as spiculation, GGN that doubles in size in 1 year, enlarged lymph notes, etc. Category Modifiers: S (significant finding unrelated to lung cancer) Electronically Signed: Eligio Murdock MD at 16:59 EST ,
--- OUTSIDE RECORDS SUMMARY | 2023-05-27 14:09 | XMS RPT_ITS | CCD ---
Author Name Unknown Address [address] [place] [address] [facility] [place] Care Team Providers Care Alarm Operator Name Role Phone DOROTA CANCHOLA Unavailable Unavailable DOROTA CANCHOLA Unavailable Unavailable Allergies Allergy Classification Reported Allergen(s) Allergy Type Date of Onset Reaction(s) Facility (1 source) NUT - UNSPECIFIED; Translations: [NUT - UNSPECIFIED] Propensity to adverse reactions to drug (disorder) 3 [facility] Other [place] (1 source) TOMATOES; Translations: [TOMATOES] Propensity to adverse reactions to food (disorder) [facility] [place] [facility] (1 source) OTHER; Translations: [OTHER] Propensity to adverse reactions (disorder) 6 [facility] Problems Problem Classification Problem Date Documented Da te Episodic/Chronic Spondylosis; intervertebral disc disorders; other back problems (1 source) Spondylosis without myelopathy or radiculopathy, lumbar region; Translations: [Spondylosis without myelopathy or radiculopathy, lumbar region] Onset: 01-07-2017 Chronic Results Test Name Value Interpretation Reference Range Facil ity Encounters Encounter Date Encounter Type Care Provider Facility Start: 01-07-2017 End: 01-07-2017 Ambulatory DOROTA [facility] Progress note 08-07-2020 Note Date & Type Note Facility 08-07-2020 Note HNO ID: [id number] Author: Luigi Saba Service: ? Author Type: Physician Type: Progress Notes Filed: 08/07/2020 3:16 PM Note Text: Patient presents with: know on head: fell 2 days ago HPI: Fell backwards and hit his head on a table 2 days ago. He has a bump on the back of his head that is tender to touch but otherwise no symptoms. Denies headache, dizziness, nausea, vision change, numbness, change in weakness, mood change, lethargy, or speech difficulty. No treatment. Hx CP with unstable gait and falls. He is not using his walker as advised. PAST MEDICAL HISTORY Diagnosis Date - Abnormality of gait 12/15/2004 - Allergic rhinitis, cause unspecified 09/10/2005 - ANXIETY STATE NOS 12/08/2005 - Calculus of gallbladder without mention of cholecystitis or obstruction 02/18/2006 asymptomatic - Depressive disorder, not elsewhere classified 12/15/2004 - Diarrhea - Diverticulosis of colon (without mention of hemorrhage) 07/09/2010 - Hypertension - Infantile cerebral palsy, unspecified 12/15/2004 - Irregular heart beat history of - Lumbago 02/15/2013 - Lumbar spondylosis 07/07/2013 - Osteoarthrosis, unspecified whether generalized or localized, unspecified site 12/15/2004 - Other and unspecified alcohol dependence, unspecified drinking behavior 12/15/2004 - Other and unspecified hyperlipidemia 12/15/2004 - Other kyphoscoliosis and scoliosis 12/15/2004 - Tobacco use disorder 02/25/2006 - Unspecified gastritis and gastroduodenitis without mention of hemorrhage 06/08/2005 - Unspecified intellectual disabilities 12/15/2004 MEDICATIONS: naproxen (NAPROSYN) 500 mg tablet Take 1 tablet by mouth twice daily as needed for Pain (for pain/inflammation). Take with food. metoprolol tartrate, short acting, (LOPRESSOR) 25 mg tablet Take 1 tablet by mouth twice daily. dicyclomine (BENTYL) 10 mg capsule TAKE ONE CAPSULE BY MOUTH FOUR TIMES DAILY IF NEEDED FOR BOWEL SYMPTOMS cholestyramine (QUESTRAN) 4 gram packet Take 1 Packet by mouth twice daily with meals. tamsulosin ER (FLOMAX) 0.4 mg take 1 capsule by mouth at bedtime amLODIPine (NORVASC) 5 mg tablet Take 1 tablet by mouth once daily. inulin (FIBER GUMMIES ORAL) Take 2 tablets by mouth twice daily. simvastatin (ZOCOR) 20 mg tablet Take 1 tablet by mouth daily at bedtime. fluticasone (FLONASE) 50 mcg/actuation nasal spray instill 1 spray into each nostril once daily loratadine (CLARITIN) 10 mg tablet Take 10 mg by mouth once daily. diphenhydrAMINE (BENADRYL) 25 mg tablet Take 25 mg by mouth daily at bedtime. guaifenesin (MUCINEX ORAL) Take 1 tablet by mouth once daily. COMPOUNDED PRESCRIPTION Dic 5%,Emma 2%,Bup 5%,Cyc 2%,Larry 6%.Apply 1-2g to affected area qid as needed for pain. psyllium Husk (FIBER) 0.52 gram capsule Take 3 capsules by mouth twice daily. ALLERGIES: ALLERGIES Allergen Reactions - Environmental [Othe* - Nut - Unspecified Diarrhea - Tomatoes Diarrhea VITALS: BP 104/76 Pulse 80 Temp 36 ?C (96.8 ?F) (Tympanic) Resp 18 Wt 82.2 kg (181 lb 3.2 oz) SpO2 98% BMI 29.69 kg/m? PHYSICAL EXAM: GEN: pleasant, no acute distress, alert HEENT: PERRL, EOMI, MMM Scalp: 3cm area with mixed portion of ecchymosis right occiput. No abrasion or significant edema. Tender at the point of bruising but no bony tenderness of the rest of the scalp. NECK: supple, no midline spinous tenderness, no lymphadenopathy, no thyromegaly HEART: regular rate, regular rhythm, no murmurs LUNGS: clear to auscultation, no wheezes or crackles, no increased WOB EXT: no clubbing, no cyanosis, no edema NEURO: Alert and oriented to person, place, and time. CN II-XII intact. DTR 1+/4. Weak legs. Able to stand up from wheelchair using arm rests. No tremor. ASSESSMENT/PLAN: 1. Fall, initial encounter - ICD9: E888.9, ICD10: W19.XXXA (primary diagnosis) 2. Contusion of scalp, initial encounter - ICD9: 920, ICD10: S00.03XA 3. Abnormality of gait - ICD9: 781.2, ICD10: R26.9 Benign exam and symptoms. Encouraged using walker at home which he promises he will do. Seek evaluation for headache, dizziness, nausea, vision change, numbness, weakness, lethargy, mood change, or speech difficulty. Liugi Saba MD [facility] Clinical Note 06-29-2020 Note Date & Type Note Facility 06-29-2020 Note Patient [facility] ([facility]) SERA RAMSEY ([id number]) 1960 M TXT Date Time Provider Department 06/29/20 WEATHERS, ROSELYN BAIRES During your visit today, we recorded the following information about you: Allergies As of Date: 06/29/2020 Noted Allergy Reaction environmental [Other] 02/16/2006 NUT - UNSPECIFIED 12/15/2012 6 - Diarrhea TOMATOES 12/15/2012 6 - Diarrhea Date Reviewed: 06/13/2020 Reviewed by: Haydee Mejia LPN - Fully Assessed Order(s):SARS-COVID VACCINE 1ST DOSE APPT [[id number]] Order #: [id number] FUTURE Prescriptions as of 06/29/2020 Sig: NAPROXEN 500 MG TABLET Take 1 tablet by mouth twice * METOPROLOL TARTRATE 25 MG TAB* Take 1 tablet by mouth twice * DICYCLOMINE 10 MG CAPSULE TAKE ONE CAPSULE BY MOUTH FOU* CHOLESTYRAMINE (WITH SUGAR) 4* Take 1 Packet by mouth twice * TAMSULOSIN 0.4 MG CAPSULE take 1 capsule by mouth at be* AMLODIPINE 5 MG TABLET Take 1 tablet by mouth once d* FIBER GUMMIES ORAL Take 2 tablets by mouth twice* SIMVASTATIN 20 MG TABLET Take 1 tablet by mouth daily * FLUTICASONE PROPIONATE 50 MCG* instill 1 spray into each nos* LORATADINE 10 MG TABLET Take 10 mg by mouth once denisa* DIPHENHYDRAMINE 25 MG TABLET Take 25 mg by mouth daily at * MUCINEX ORAL Take 1 tablet by mouth once d* COMPOUNDED PRESCRIPTION Dic 5%,Emma 2%,Bup 5%,Cyc 2%,G* PSYLLIUM HUSK 0.52 GRAM CAPSU* Take 3 capsules by mouth twic* Problem List As Of Date 06/29/2020 Noted Resolved MENTAL RETARDATION NOS [F79] 12/15/2004 SCOLIOSIS NEC [M41.80] 12/15/2004 06/21/2015 ABNORMALITY OF GAIT [R26.9] 12/15/2004 Osteoarthritis [M19.90] 12/15/2004 DEPRESSIVE DISORDER NEC [F32.9] 12/15/2004 09/10/2005 Alcoh Dep NEC/NOS, Unspec [F10.20] 12/15/2004 08/26/2009 Mixed hyperlipidemia [E78.2] 12/15/2004 PAIN IN LIMB [M79.609] 03/03/2005 09/10/2005 DERMATOPHYTOSIS OF NAIL [B35.1] 03/03/2005 09/10/2005 ONYCHIA OF TOE [L03.039] 07/22/2005 09/10/2005 Allergic rhinitis [J30.9] 09/10/2005 Anxiety state, unspecified [F41.1] 12/08/2005 06/16/2014 Tobacco use disorder [F17.200] 02/25/2006 12/07/2013 Essential hypertension [I10] 08/17/2007 PAIN IN LIMB [M79.609] 12/23/2007 08/21/2008 Dermatophytosis of nail [B35.1] 12/23/2007 05/18/2018 Pain in limb [M79.609] 12/13/2008 08/31/2011 Irritable Colon Syndrome [K58.9] 11/11/2009 Diarrhea [R19.7] 08/11/2010 Diverticulosis of colon (without mention of hem*07/09/2010 06/05/2017 Diarrhea [R19.7] 01/09/2011 08/31/2011 Lumbago [M54.5] 02/15/2013 10/29/2017 Lumbar spondylosis [M47.816] 07/07/2013 Chronic midline low back pain with sciatica [M5*05/12/2017 10/29/2017 Acute back pain with sciatica [M54.40] 05/12/2017 06/05/2017 Urinary frequency [R35.0] 05/23/2019 Obesity, Class I, BMI 30-34.9 [E66.9] 06/13/2020 Encounter Status:Closed by ALEXSANDER ROBERTSONUSER on 07/02/20 [facility] Summary Purpose Family History No Family History Records FoundNo Family History Records Found Advance Directives No Advanced Directives Records FoundNo Advanced Directives Records Found Additional Source Comments (unrecognized sect ion and content) No Status Records FoundNo Status Records Found INFORMATION SOURCE (unrecogn ized section and content) DATE CREATED AUTHOR AUTHOR'S LUPILLO JOE 06/20/2021 [facility] FOR RECORDS PERTAINING TO PATIENTS WHO ARE OR HAVE BEEN ENROLLED IN A CHEMICAL DEPENDENCY/SUBSTANCEABUSE PROGRAM, SOME INFORMATION MAY BE OMITTED. This clinical summary was aggregated from multiple sources. Caution should be exercised in using it in the provision of clinical care. This summary normalizes information from multiple sources, and as a consequence, information in this document may materially change the coding, format and clinical context of patient data. In addition, data may be omitted in some cases. CLINICAL DECISIONS SHOULD BE BASED ON THE PRIMARY CLINICAL RECORDS. [facility] [employer] [facility]. provides no warranty or guarantee of the accuracy or completeness of information in this document.
== END | disposition home or self-care (01) ==
PROVIDERS: PCP Family Medicine Geriatric Medicine; Referring Provider Family Medicine Geriatric Medicine; Visit Provider Family Medicine Geriatric Medicine
DX: Z12.2 Encounter for screening for malignant neoplasm of respiratory organs (principal); F17.210 Nicotine dependence, cigarettes, uncomplicated
CPT/HCPCS: 71271

== ENCOUNTER → 2023-07-27 | Outpatient (CLI) | payer MEDICARE, MEDICAID, SELFPAY ==
[2023-07-27 12:40] LABS: Absolute Lymphocyte Count 1.25 X10^3/uL (0.83-4.51); Absolute Neutrophil Count 3.7 X10^3/uL (2.0-7.7); Basophil# 0.06 X10^3/uL; Eosinophil# 0.21 X10^3/uL; Eosinophils% 3.6 % (0-5); Hematocrit 46.6 % (40-54); Hemoglobin 15.8 g/dL (13.0-16.5); Lymphocyte # 1.25 X10^3/ul (0.83-4.51); Lymphocyte % 21.6 % (19-41); Mean Corp Hgb Conc 33.9 g/dL (32-36); Mean Corpuscular Hgb 28.7 pg (27.0-32.0); Mean Corpuscular Volume 84.6 fL (80-94); Mean Platelet Vol. 11.2 fl (6.2-12.0); Monocyte% 8.7 % (0-10); NRBC Flagged by Analyzer 0 % (0-5); Neutrophil # 3.74 X10^3/uL (2.7-7.7); Neutrophil % 64.8 % (47-70); Platelet Count 309 K/mm3 (150-450); RBC Distribution Width CV 13.2 % (11.6-14.6); RBC Distribution Width SD 40.6 fl (35.1-43.9); Red Blood Count 5.51 M/mm3 (4.6-6.2); White Blood Count 5.8 K/mm3 (4.4-11.0)
[2023-07-27 12:59] LABS: Vitamin B12 265 pg/mL (211-911)
[2023-07-27 13:12] LABS: ALB/GLOB Ratio 1.3 RATIO (0.9-2.4); AST(SGOT) 19 U/L (15-37); Alanine Aminotransfer ALT/SGPT 32 U/L (16-61); Albumin, Serum 3.9 g/dL (3.2-5.0); Alkaline Phosphatase 110 U/L (45-117); Anion Gap 8 (5-15); BUN 26 mg/dL (7-18); BUN/Creat Ratio 33.9 RATIO (10-20); Calcium,Total 9.8 mg/dL (8.5-10.1); Chloride 109 mmol/L (98-107); Creatinine, Serum 0.77 mg/dL (0.70-1.30); EST Glomerular Filtration Rate 109 mL/min (>60); Est Glom Filt Rate - Afr Amer 132 mL/min (>60); Globulin 3.1 g/dL (2.2-4.2); Glucose 115 mg/dL (74-106); Iron 98 ug/dL (65-175); Potassium 3.9 mmol/L (3.5-5.1); Sodium Level 142 mmol/L (136-145); Thyroid Stim Hormone (TSH) 1.56 uIU/mL (0.358-3.74)
[2023-07-28 11:09] LABS: PROEL- A/G Ratio 1.7 (0.7-1.7); PROEL- Alpha-1 Globulin 0.1 g/dL (0.0-0.4); PROEL- Alpha-2 Globulin 0.7 g/dL (0.4-1.0); PROEL- Beta Globulin 0.9 g/dL (0.7-1.3); PROEL- Gamma Globulin 0.8 g/dL (0.4-1.8); PROEL- Globulin, Total 2.4 g/dL (2.2-3.9); PROEL- TOTAL PROTEIN 6.4 g/dL (6.0-8.5); PROEL-M-Spike Not Observed g/dL (Not Observed)
== END | disposition home or self-care (01) ==
LOC: POLAB3 11:17
PROVIDERS: PCP Family Medicine Geriatric Medicine; Visit Provider Family Medicine Geriatric Medicine
DX: D64.9 Anemia, unspecified (principal); E53.8 Deficiency of other specified B group vitamins; E78.5 Hyperlipidemia, unspecified; E87.1 Hypo-osmolality and hyponatremia; I10 Essential (primary) hypertension
CPT/HCPCS: 36415; 80053; 82607; 83540; 84165; 84443; 85025

== ENCOUNTER → 2023-08-18 | Outpatient (CLI) | payer MEDICARE, MEDICAID, SELFPAY ==
--- NOTE | 2023-08-18 13:51 | NEURO ---
NCS and/or EMG Patient Report Ordering Doctor: Claudio Martinez Chi DATE OF SERVICE: 08/18/23 Brooks presents for electrodiagnostic testing of the lower limbs. He reports a history of cerebral palsy with restlessness in the legs. He has a history of lower back pain. Electrodiagnostic findings: Right peroneal motor nerve demonstrates normal distal latency with reduced amplitude and normal conduction velocity. Right tibial motor nerve demonstrates normal distal latency, amplitude and conduction velocity. Right sural and superficial peroneal responses could not be obtained. Prolonged right peroneal F wave is noted. Needle EMG testing was attempted in the right lower limb. Testing was performed in the right tibialis anterior right peroneus longus and right gastrocnemius. However, the patient was unable to stay still for the examination and therefore additional muscles could not be tested. Electrodiagnostic impression: This is an abnormal study in the right lower limb. Electrodiagnostic findings are suggestive of possible motor and sensory polyneuropathy. Would recommend future testing of the left lower limb if patient is able to stay still and better tolerate the examination. Despite limited testing, findings are not suggestive of lumbar radiculopathy. Multi Select Codes Neurology Neurology Interp Codes: 94146-32 EMG, Limited and 62150-96 Nrv cndj tst 5-6 studies (interp)
== END | disposition home or self-care (01) ==
PROVIDERS: PCP Family Medicine Geriatric Medicine; Referring Provider Family Medicine Geriatric Medicine; Visit Provider Family Medicine Geriatric Medicine
DX: M79.671 Pain in right foot (principal); G62.9 Polyneuropathy, unspecified; R20.9 Unspecified disturbances of skin sensation
CPT/HCPCS: 95885; 95909

== ENCOUNTER 2023-10-05 15:00 | Outpatient (RCR) | payer MEDICARE, MEDICAID, SELFPAY ==
--- NOTE | 2023-07-22 11:31 | HP.PTEVAL_ITS ---
Patient's Visit Information Visit Information Visit Information: SERA RAMSEY is a 63 year old M referred to Physical Therapy by Dr. David Chaney MD with a diagnosis of BACK AND LEG PAIN. Date of Evaluation: 07/22/23 Physical Therapist: Vladimir Elliott, PT, Cert MDT, OCS Visit Plan Frequency: 2x /Week Duration: 4 Weeks Plan: PT INTERVENTIONS LUMBAR FLEXION ,LE FLEXABILITY MANUALLY ,DLS LE STR ENGTHENING AND POSTURAL EX'S Subjective Subjective: This 63 y/o male presents to physical therapy with back and leg pain. This patient has had back and leg pain many years. Patient seen Dr Megan madrid ~ 2weeks ago. Pain located symmetrical lumbar described as ache. No imaging recently done. Patient does have h/o falls so using walker. Patient has had pain management in past . Patient also has PT .Aggravating standing and walking .Patient has difficulty bending lifting. Patient has back cream for pain. Coughing/sneezing-.Bowel/bladder -. Denies paresthesia/tingling -. 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 Patient lives alone in apartment. No steps. Walk-in shower with grab bars and shower chair. 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 Patient pain affects QOL and function /ADL. Patient goals to decrease pain. SOCIAL: lives alone VOCATION: Disability Pain Bilateral Back: Pain Intensity (Out of 10): 4 Pain Intensity Range: N/A Objective Objective: POSTURE: scoliosis trunk flexed forward hips/knee flexed NEURO: denies paresthesia/tingling ,reflexes C5-6-7 3/3 ,hypertonicity GAIT: ambulates with fww drags feet crosses midline decrease hip/knee flexion slow dain SYMMETRIES: asymmetries PALPATION: unremarkable FLEXABILITY: hamstrings mod/severe tight ,piriformis mod tight MMT: hip flexion right 3/4 ,left 3+/5 ,hamstrings/quads 3+/5 ,ankle 3+/5 LUMBAR ROM: flexion mod /loss ,extension severe tight Special Tests L/S Slump test left side: Negative L/S Slump test right side: Negative L/S Left Straight Leg Raise: Negative L/S Right Straight Leg Raise: Negative Balance/Special Test Scores Oswestry Low Back Score: 34 Goals Goal 1:: Patient to be I with HEP for back Goal Time Frame: 4-6 Weeks Goal 2:: Patient to demonstrate 40% improvement with less pain and improved function Goal Time Frame: 4-6 Weeks Goal 3:: Patient to improve lumbar ROM for function of recovery to put on shoes Goal Time Frame: 4-6 Weeks Goal 4:: Patient to improve back oswestry score by 5 points to improve QOL and function Goal Time Frame: 4-6 Weeks Goal 5:: Patient be able to stand > 5 mins to wash dishes. Goal Time Frame: 4-6 Weeks Rehabilitation Potential Physical Therapy Diagnosis: This patient has back pain which has been chronic affects function with walking and standing impairs ADLS thus benefit from skilled PT Rehabilitation Potential: Good Anticipated Interventions Text: Thank you for the opportunity to evaluate your patient. For Medicare and Medicare HMO plans, please review the plan of care and approve it. It will need to be FAXED BACK to us at [phone] for Medicare purposes. For Medicare only, by signing this I certify the plan of care. Please let me know if there are questions or concerns regarding this plan of care. Physician Signature: Date:
--- NOTE | 2023-10-05 15:35 | HP.PTDCSUM ---
Discharge Summary D/C summary: It has been my pleasure to treat SERA RAMSEY referred by Dr. David Chaney MD, with the diagnosis of BACK AND LEG PAIN for a total of 5 visit(s). Discharge Date: 10/05/23 Please see the following information for a summary of their discharge status. Subjective Subjective: Patient doing ex's own . Patient plans to Next week family Chiropractor 1x week Pain Bilateral Back: Pain Intensity (Out of 10): 1 Overall Improvement % Improvement: 25 Objective Objective/Function: POSTURE: scoliosis trunk flexed forward hips/knee flexed NEURO: denies paresthesia/tingling ,reflexes C5-6-7 3/3 ,hypertonicity GAIT: ambulates with fww drags feet crosses midline decrease hip/knee flexion slow dain SYMMETRIES: asymmetries PALPATION: unremarkable FLEXABILITY: hamstrings mod/severe tight ,piriformis mod tight MMT: hip flexion right 3/4 ,left 3+/5 ,hamstrings/quads 3+/5 ,ankle 3+/5 LUMBAR ROM: flexion mod /loss ,extension severe tight Goals Goal 1:: Patient to be I with HEP for back Goal Progress: Goal Met Goal 2:: Patient to demonstrate 40% improvement with less pain and improved function Goal Progress: Progressing Goal 3:: Patient to improve lumbar ROM for function of recovery to put on shoes Goal Progress: Progressing Goal 4:: Patient to improve back oswestry score by 5 points to improve QOL and function Goal Progress: Progressing Goal 5:: Patient be able to stand > 5 mins to wash dishes. Goal Progress: Goal Met Plan Plan: D/C D/C Information Discharge Comments: HEP d/c sentence: If there are questions or concerns regarding this patient's physical therapy, please feel free to call me at [phone]. Thank you for the referral of this patient. Sincerely, Vladimir Elliott, PT, Cert MDT, OCS Balance/Gait/Functional tests Balance/Special Test Scores Oswestry Low Back Score: 26 Improvement % Improvement: 25
== END 2023-10-05 17:22 | disposition home or self-care (01) ==
LOC: PT 15:00
PROVIDERS: PCP Family Medicine Geriatric Medicine; Referring Provider Anesthesiology Pain Medicine; Visit Provider Anesthesiology Pain Medicine
DX: M54.9 Dorsalgia, unspecified (principal); M79.606 Pain in leg, unspecified
CPT/HCPCS: 97110; 97162; 97530

== ENCOUNTER → 2023-10-12 | Outpatient (CLI) | payer MEDICARE, MEDICAID, SELFPAY | END | disposition home or self-care (01) | PROVIDERS: PCP Family Medicine Geriatric Medicine; Visit Provider Family Medicine Geriatric Medicine | DX: R68.83 Chills (without fever) (principal) | CPT/HCPCS: 87631 ==

== ENCOUNTER → 2023-10-28 | Outpatient (CLI) | payer MEDICARE, MEDICAID, SELFPAY ==
--- NOTE | 2023-10-28 13:53 | RAD_ITS ---
STUDY: X-RAY - LEFT FOOT CLINICAL: Male, 63 years old. Pain. TECHNIQUE: 3 view(s) of the foot. COMPARISON: May 28, 2021 FINDINGS: Osteopenia with diffuse mild osteoarthritic changes most marked at the MTP and IP joints with hammertoe deformities. Thin linear metallic artifact compatible with a portion of the needle projected over the lower and proximal aspect of the first proximal phalanx. RAD/Foot min 3 Views IMPRESSION: Osteopenia with osteoarthritic changes as described. Needle metallic artifact projected over the volar surface of the foot adjacent to the proximal aspect of the first proximal phalanx. Electronically Signed: Cristobal Degroot MD at 14:34 EDT ,
[2023-10-28 15:23] LABS: Absolute Lymphocyte Count 1.36 X10^3/uL (0.83-4.51); Absolute Neutrophil Count 3.9 X10^3/uL (2.0-7.7); Basophil# 0.08 X10^3/uL; Basophil% 1.3 % (0-1); Eosinophil# 0.21 X10^3/uL; Eosinophils% 3.5 % (0-5); Hemoglobin 14.1 g/dL (13.0-16.5); Lymphocyte # 1.36 X10^3/ul (0.83-4.51); Lymphocyte % 22.7 % (19-41); Mean Corp Hgb Conc 32.8 g/dL (32-36); Mean Corpuscular Hgb 27.8 pg (27.0-32.0); Mean Corpuscular Volume 84.8 fL (80-94); Monocyte# 0.46 X10^3/uL; Monocyte% 7.7 % (0-10); NRBC Flagged by Analyzer 0 % (0-5); Neutrophil # 3.86 X10^3/uL (2.7-7.7); Neutrophil % 64.3 % (47-70); Platelet Count 324 K/mm3 (150-450); RBC Distribution Width CV 13.2 % (11.6-14.6); RBC Distribution Width SD 40.4 fl (35.1-43.9); Red Blood Count 5.07 M/mm3 (4.6-6.2)
[2023-10-28 15:54] LABS: Erythrocyte Sedimentation Rate 4 mm/hr (0-20)
[2023-10-28 16:05] LABS: ALB/GLOB Ratio 1.1 RATIO (0.9-2.4); AST(SGOT) 21 U/L (15-37); Alanine Aminotransfer ALT/SGPT 32 U/L (16-61); Albumin, Serum 3.6 g/dL (3.2-5.0); Alkaline Phosphatase 110 U/L (45-117); Anion Gap 4 (5-15); BUN 19 mg/dL (7-18); BUN/Creat Ratio 23.7 RATIO (10-20); CRP, High Sensitivity Cardiac 1.09 mg/L; Calcium,Total 9.3 mg/dL (8.5-10.1); Chloride 110 mmol/L (98-107); EST Glomerular Filtration Rate 104 mL/min (>60); Est Glom Filt Rate - Afr Amer 125 mL/min (>60); Globulin 3.2 g/dL (2.2-4.2); Glucose 85 mg/dL (74-106); Potassium 4.2 mmol/L (3.5-5.1); Protein, Total 6.8 g/dL (6.4-8.2); Sodium Level 141 mmol/L (136-145); Uric Acid 8.1 mg/dL (3.5-7.2)
== END | disposition home or self-care (01) ==
PROVIDERS: PCP Family Medicine Geriatric Medicine; Referring Provider Family Medicine Geriatric Medicine; Visit Provider Family Medicine Geriatric Medicine
DX: M79.672 Pain in left foot (principal); I10 Essential (primary) hypertension; M10.9 Gout, unspecified
CPT/HCPCS: 36415; 73630; 80053; 84550; 85025; 85652; 86141

== ENCOUNTER 2023-10-29 09:42 | Day surgery (SDC) | payer MEDICARE, MEDICAID, SELFPAY ==
[2023-10-29] VITALS (15 sets, daily range): BP systolic 131–177; BP diastolic 67–98; PULSE 66–88; RESP 16–17; TEMP 36.3–37; O2SAT 95–98; BMI 36.1; BMI 30.8
--- NOTE | 2023-10-29 10:46 | ED.VIS.LOWEX ---
HPI History of Present Illness HPI Narrative: Patient presents with a foreign body to his left great toe that occurred 1 week ago. Patient states he pulled the needle out of his foot. Patient thought he got it all. Patient had x-ray done yesterday as an outpatient which still showed a metallic foreign body in his left great toe. Patient had outpatient lab work done yesterday which was normal. Patient states the pain is dull and aching. Patient states it is better when he has his foot elevated. Patient denies any paresthesias or weakness. Patient denies any other injuries. Chief Complaint: Other, Pain/Inj Informant: patient Onset/Context/Timing Onset: Weeks (1) Context: Gradual Onset Timing: Continuous Quality of Pain: Dull and Aching Location: Left great toe Worsened by: Nothing Relieved by: Elevation Narrative Tetanus Immunization: >10 years [facility] Medical History Scoliosis HLD (hyperlipidemia) BPH (benign prostatic hyperplasia) HTN (hypertension) Home Medications ?Medication ?Instructions ?Recorded ?Last Taken ?Type metoprolol tartrate 25 mg tablet 25 mg PO BID 04/06/14 10/29/23 History pravastatin 40 mg tablet 40 mg PO DAILY 12/20/20 10/29/23 History tamsulosin 0.4 mg capsule 0.4 mg PO DAILY 12/20/20 10/29/23 History albuterol sulfate 90 mcg/actuation 2 puff inhalation Q4H PRN 10/29/23 Unknown History aerosol inhaler shortness of breath or wheezing ascorbic acid (vitamin C) 1,000 mg 1 g PO DAILY 90 days #90 tabs 10/29/23 Unknown Rx tablet (Vitamin C) calcium carbonate 500 mg-vitamin 1 tab PO DAILY 90 days #90 tabs 10/29/23 Unknown Rx D3 15 mcg (600 unit) tablet (Os-Mata 500 + D3) cephalexin 500 mg capsule 500 mg PO TID 2 weeks #42 caps 10/29/23 Unknown Rx colchicine 0.6 mg tablet 0.6 mg PO BID 10/29/23 10/29/23 History docusate sodium 100 mg capsule 100 mg PO DAILY 10 days #10 caps 10/29/23 Unknown Rx (Colace) gabapentin 100 mg capsule 100 mg PO TID 10/29/23 10/29/23 History naproxen 500 mg tablet 500 mg PO BID 10/29/23 10/29/23 History omeprazole 20 mg capsule,delayed 20 mg PO DAILY 10/29/23 10/29/23 History release oxycodone-acetaminophen 5 mg-325 1 tab PO Q6H PRN pain 7 days #28 10/29/23 Unknown Rx mg tablet (Percocet) tabs potassium chloride 20 mEq 20 meq PO DAILY 10/29/23 10/29/23 History tablet,extended release(part/cryst) prednisone 10 mg tablet See Taper PO DAILY 10/29/23 10/29/23 History ropinirole 0.5 mg tablet 0.5 mg PO BID 10/29/23 10/29/23 History Allergy/AdvReac Type Severity Reaction Status Date / Time No Known Allergies Allergy Verified 10/29/23 16:11 Surgical History no surgical history no surgical history Social History Smoking Status: Unknown if ever smoked ROS ROS ED Constitutional Constitutional ED: Denies chills or fever(s) Eyes Eyes: Denies blurry vision or change in vision ENT ENT ED: Denies rhinorrhea or sore throat Cardiovascular Cardiovascular: Denies chest pain or palpitations Respiratory/Chest Respiratory/Chest: Reports cough; Denies dyspnea Gastrointestinal Gastrointestinal: Denies nausea or vomiting Genitourinary Genitourinary ED: Denies dysuria or hematuria Musculoskeletal Musculoskeletal: Denies back pain or neck pain Integumentary Denies abscess or rash Neurologic Neurologic: Denies headache(s) or weakness Allergic/Immunologic Allergic/Immunologic ED: Denies mouth swelling or urticaria EXAM Physical Exam Const Vital Signs: 10/29/23 09:43 10/29/23 11:35 10/29/23 11:51 Temperature 97.6 F L 98.1 F Temperature Source Temporal Oral Pulse Rate 73 81 Respiratory Rate 16 16 Respiratory Effort Normal Non-Labored Respiratory Pattern Normal Blood Pressure 146/93 H 135/67 H Blood Pressure Mean 110 89 Blood Pressure Source Blood Pressure Position Blood Pressure Location Baseline BP Pulse Ox 96 97 Oxygen Delivery Method Room Air 10/29/23 13:00 10/29/23 13:30 10/29/23 14:51 Temperature 98.3 F 98.3 F 97.7 F L Temperature Source Oral Oral Oral Pulse Rate 76 84 66 Respiratory Rate 16 17 16 Respiratory Effort Respiratory Pattern Blood Pressure 146/82 H 142/76 H 161/95 H Blood Pressure Mean 103 98 117 Blood Pressure Source Monitor Blood Pressure Position Supine Blood Pressure Location Left Arm Baseline BP Pulse Ox 95 96 98 Oxygen Delivery Method Room Air Room Air Room Air 10/29/23 15:40 10/29/23 17:07 10/29/23 19:35 Temperature 98.1 F 98.1 F 97.8 F Temperature Source Temporal Pulse Rate 88 88 88 Respiratory Rate 16 16 16 Respiratory Effort Respiratory Pattern Normal Blood Pressure 177/98 H 177/98 H 146/85 H Blood Pressure Mean 124 105 Blood Pressure Source Monitor Blood Pressure Position Semi-Fowlers Blood Pressure Location Left Arm Baseline BP 135/67 Pulse Ox 98 98 96 Oxygen Delivery Method Room Air 10/29/23 19:40 10/29/23 19:45 10/29/23 19:50 Temperature Temperature Source Pulse Rate 85 85 83 Respiratory Rate 16 16 16 Respiratory Effort Respiratory Pattern Blood Pressure 131/90 H 138/82 H 140/88 H Blood Pressure Mean 103 100 105 Blood Pressure Source Monitor Monitor Monitor Blood Pressure Position Semi-Fowlers Semi-Fowlers Semi-Fowlers Blood Pressure Location Left Arm Left Arm Left Arm Baseline BP 135/67 135/67 135/67 Pulse Ox 96 96 96 Oxygen Delivery Method Room Air Room Air Room Air 10/29/23 20:00 10/29/23 20:01 10/29/23 20:06 Temperature 97.3 F L 98.6 F Temperature Source Temporal Pulse Rate 84 78 80 Respiratory Rate 16 17 16 Respiratory Effort Respiratory Pattern Blood Pressure 149/96 H 146/85 H 140/91 H Blood Pressure Mean 113 107 Blood Pressure Source Monitor Monitor Blood Pressure Position Semi-Fowlers Semi-Fowlers Blood Pressure Location Left Arm Left Arm Baseline BP 135/67 135/67 Pulse Ox 95 96 95 Oxygen Delivery Method Room Air Room Air 10/29/23 20:10 10/29/23 20:45 Temperature Temperature Source Pulse Rate Respiratory Rate Respiratory Effort Respiratory Pattern Normal Blood Pressure Blood Pressure Mean Blood Pressure Source Blood Pressure Position Blood Pressure Location Baseline BP 135/67 Pulse Ox Oxygen Delivery Method Positive well nourished and well developed General Appearance ED: well developed and NAD HEENT Reports moist mucous membranes Neck full ROM and supple Extremity Extremity Narrative: There is edema, erythema, and tenderness over the left great toe. There is no fluctuance or evidence of any abscess. Range of motion was slightly limited in all motions of the IP and MP joints of the left great toe secondary to pain. Sensation was intact to light touch in all digits. Capillary refill was less than 2 seconds in all digits. Pedal pulses are equal bilaterally. Strength is 5/5 bilaterally in the lower extremities. Neuro oriented x3, CN's II-XII intact bilaterally, moves all extremities and no sensory deficits noted Sensorium / Orientation: alert Motor Exam: strength 5/5 throughout Psych mental status grossly normal MDM MDM MDM Narrative Medical decision making narrative: Differential diagnosis includes cellulitis, osteomyelitis, and retained foreign body. X-rays from yesterday were reviewed. There is a metallic foreign body over the volar aspect of the distal phalanx of the left great toe. There is no acute fracture. This was interpreted by the radiologist. Labs from yesterday were reviewed. CBC was reviewed and was within normal limits. Comprehensive metabolic profile was reviewed and was within normal limits. Sed rate was reviewed and was normal. CRP was reviewed and was normal. Patient was given a dose of Ancef here. Patient was given tetanus booster. Case will be discussed with Dr. Thompson from podiatry for possible removal of the foreign body. Lab Data Labs: Laboratory Results - last 24 hr 10/29/23 19:39 Troponin I High Sens 6 Management Discussion w/another healthcare provider: Galley Stripper Treatment and Re-Evaluation Narrative: Case was discussed with Dr. Thompson. He will take the patient to the operating room today. Patient is agreeable with the plan. All questions were answered. Discharge Plan Dx/Rx/DC Orders Clinical Impression: Foreign body of great toe, left, infected, Cellulitis of great toe of left foot Disposition Disposition: Acute Care Hospital [facility] Discharge Date/Time: 10/29/23 15:41
[2023-10-29] MEDS: Cefazolin 1 GM/50 ML BAG IV (11:32)
[2023-10-29] MEDS: Diphth,Pertuss(Acell),Tet Vac 0.5 ML Vial IM (11:33)
[2023-10-29] MEDS: Lactated Ringers 1,000 ML 15 ML IV (16:13)
--- NOTE | 2023-10-29 17:00 | FORE_PTH ---
PATIENT: SERA RAMSEY LOC: [facility] U#:[id number] AGE/SX: 63/M ROOM: RE10/29/[address]: Dr. Devang Thompson DPM : 1960 BED: DIS: 10/29/2023 SPEC #: [id number] RECD: 11/01/23 10:07 STATUS: LAURE REMiguel #: [id number] HECTOR: 10/29/23 17:[address]: Devang Thompson DEPT: SURGICAL PATHOLOGY RECD BY: Charley Chavez ENTERED: 11/01/23 11:24 SP TYPE: FOREIGN B NOÉ DR: Dr. Claudio Martinez MD Tissues: FOREIGN BODY Procedures: Surgery Specimen Level I HEADER OPERATION: Removal foreign body, great toe PRE-OP DIAGNOSIS: Laceration of left foot with foreign body TISSUE SUBMITTED: Foreign body left great toe GROSS DIAGNOSIS Foreign body left great toe: Metallic foreign body (gross only). JOHN/ 11/02/2023 GROSS DESCRIPTION Received in fixative is one container labeled with the patient's name and designated Foreign body left great toe. The specimen consists of a needle shaped metallic foreign body measuring 1.2cm in length and 0.1cm in diameter. This specimen is for gross identification only. Jessica 11/01/2023 CPT:25503
--- NOTE | 2023-10-29 17:07 | PCM.PRE.AN2 ---
ASA Classification* ASA Classification ASA Classification: 2 and 5 Assessment & Plan Anesthesia* Anesthesia Assessment Anesthesia Assessment: Discussed sedation and/or anesthesia options, risks, benefits, and alternatives with patient/parents/legal guardian/POA. Questions invited. The patient/parents/legal guardian/POA seems to understand and agrees to proceed with anesthesia plan. Reviewed the physical assessment, medical history, allergy history and patient home medications list prior to surgery/procedure/anesthetic and documented any changes. Performed airway and anesthesia risk assessments. Anesthesia Type Anesthesia Type: MAC (see written pre anesthesia record for full assessment) Anesthesia Focused Assessment* Temperature: 98.1 F Pulse Rate: 88 Blood Pressure: 177/98 Respiratory Rate: 16 Pulse Ox: 98 Airway Assessment Mouth opens: >3 cm Mallampati Score: II Focused Labs Anesthesia Preop lab: CBC WBC 6.0 K/mm3 (4.4-11.0) 10/28/23 14:36 RBC 5.07 M/mm3 (4.6-6.2) 10/28/23 14:36 Hgb 14.1 g/dL (13.0-16.5) 10/28/23 14:36 Hct 43.0 % (40-54) 10/28/23 14:36 Plt Count 324 K/mm3 (150-450) 10/28/23 14:36 CHEMISTRY Potassium 4.2 mmol/L (3.5-5.1) 10/28/23 14:36 Sodium 141 mmol/L (136-145) 10/28/23 14:36 BUN 19 mg/dL (7-18) H 10/28/23 14:36 Creatinine 0.80 mg/dL (0.70-1.30) 10/28/23 14:36 Glucose 85 mg/dL (74-106) 10/28/23 14:36 TSH 1.56 uIU/mL (0.358-3.74) 07/27/23 11:17 COAG Pre-Assessment Diagnosis/Proposed Procedure Planned Operative Procedure(s): removal of FB , toe Anesthesia History 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 When Was Last Pacemaker Check QUESTION #4 FULL TEXT: You/Your Family Experience fever (hyperthermia) with Anesthesia Last Oral Intake Last Oral intake: Last Oral Intake NPO since 12:45 10/29/23 13:30 Meds taken in AM with sips of water? 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 Has anyone observed you stop No 10/29/23 13:30 breathing during sleep? STOP Results Positive 10/29/23 13:30 QUESTION #5 FULL TEXT : Do you snore loudly (louder than talking or can be heard through closed doors)? 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 Specify any problems Hx of Preganancy in last 3 Months Nurse Filling Out Transfusion & Questions: Date: Time: Patient unable to answer at this time (ie. 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 Hx Now Gestational Age (in weeks): EDC: Hx Hx Para Hx Section SAB Active Medications Active Medications: Current Medications Generic Name Dose Route Start Last Admin Trade Name Freq PRN Reason Stop Dose Admin Lactated Ringer's 1,000 mls @ 15 mls/hr 10/29/23 16:15 10/29/23 16:13 IV 15 mls/hr .Q48H LESLIE Administration PFSH Medical History Scoliosis HLD (hyperlipidemia) BPH (benign prostatic hyperplasia) HTN (hypertension) Home Medications ?Medication ?Instructions ?Recorded ?Last Taken ?Type metoprolol tartrate 25 mg tablet 25 mg PO BID 04/06/14 10/29/23 History pravastatin 40 mg tablet 40 mg PO DAILY 12/20/20 10/29/23 History tamsulosin 0.4 mg capsule 0.4 mg PO DAILY 12/20/20 10/29/23 History albuterol sulfate 90 mcg/actuation 2 puff inhalation Q4H PRN 10/29/23 Unknown History aerosol inhaler shortness of breath or wheezing colchicine 0.6 mg tablet 0.6 mg PO BID 10/29/23 10/29/23 History gabapentin 100 mg capsule 100 mg PO TID 10/29/23 10/29/23 History naproxen 500 mg tablet 500 mg PO BID 10/29/23 10/29/23 History omeprazole 20 mg capsule,delayed 20 mg PO DAILY 10/29/23 10/29/23 History release potassium chloride 20 mEq 20 meq PO DAILY 10/29/23 10/29/23 History tablet,extended release(part/cryst) prednisone 10 mg tablet See Taper PO DAILY 10/29/23 10/29/23 History ropinirole 0.5 mg tablet 0.5 mg PO BID 10/29/23 10/29/23 History Allergy/AdvReac Type Severity Reaction Status Date / Time No Known Allergies Allergy Verified 10/29/23 16:11 Surgical History no surgical history Social History Smoking Status: Unknown if ever smoked Review of Systems (Anesthesia) ROS Narrative System reviewed and no additional complaints, except as documented.
--- NOTE | 2023-10-29 17:45 | RAD_ITS ---
EXAM: FL FLUOROSCOPY < 1 HOUR CLINICAL INDICATION: FB REMOVAL TECHNIQUE: Fluoroscopic images performed in multiple projections. Fluoroscopic guidance was provided by a physician. 13 seconds fluoroscopic time. 0.0648 mGy fluoroscopic dose. COMPARISON: 10/28/2023 FINDINGS AND RAD/Foot 2 Views IMPRESSION: 2 fluoroscopic images for foreign body removal. Refer to procedural note for complete details. The foreign body is not identified on the second image. Electronically Signed: Clemente Daigle DO at 11:50 EDT ,
--- NOTE | 2023-10-29 18:35 | CON.PCM_ITS ---
Assessment & Plan Assessment/Plan (1) Laceration of left foot with foreign body: QUALIFIERS: Encounter type: initial encounter Qualified Code(s): S91.322A - Laceration with foreign body, left foot, initial encounter PLAN: Patient was examined and evaluated. All findings were discussed with the patient. All questions were answered to the patient's satisfaction. Patient had workup in the emergency department and was n.p.o. once agreeable to moving forward with foreign body removal with laceration to left hallux. While in the emergency department the patient received 1 dose of 2 g Ancef through the IV as well as tetanus prophylaxis. The patient will be dosed for IV antibiotics once in the operating room. Patient will be seen for evaluation by anesthesia. Procedure will most likely go under monitored anesthesia care with local block to the left first ray. After surgery the patient will be discharged on Keflex 500 mg 3 times daily for 2 weeks. Patient will be seen today in the OR at [facility] for elective surgical procedure which she is agreeable to. Please reach out to Dr. Thompson with any questions or concerns. Thank you for the consultation estimation point This note was partially generated using [employer] voice recognition system/software, and there may be some incorrect words, spelling, and punctuation that were not noted in checking the note before signing. (2) Cellulitis of great toe of left foot: (3) Non-pressure chronic ulcer of other part of left foot with fat layer exposed: HPI Consult Data Date of Consult: 10/29/23 HPI Narrative Reason for Consultation: Foreighn body, left hallux HPI Narrative: SERA RAMSEY, is a 63 M who presented the [place] emergency room department today for worsening swelling and redness to the left hallux. Patient was seen by his primary doctor who prescribed him antigout medication and took an x-ray. Once the x-ray was completed that showed evidence of metallic foreign body. Patient lives with a foreign body for approximately 5 to 6 days before presenting to the emergency department. Patient is agreeable after consultation with podiatry for surgical removal today. Patient was discussed all risk and benefits were like to move forward for elective surgery. He denies constitution al symptoms. No other pedal complaints at this time. [facility] Medical History Scoliosis HLD (hyperlipidemia) BPH (benign prostatic hyperplasia) HTN (hypertension) Home Medications ?Medication ?Instructions ?Recorded ?Last Taken ?Type metoprolol tartrate 25 mg tablet 25 mg PO BID 04/06/14 10/29/23 History pravastatin 40 mg tablet 40 mg PO DAILY 12/20/20 10/29/23 History tamsulosin 0.4 mg capsule 0.4 mg PO DAILY 12/20/20 10/29/23 History albuterol sulfate 90 mcg/actuation 2 puff inhalation Q4H PRN 10/29/23 Unknown History aerosol inhaler shortness of breath or wheezing ascorbic acid (vitamin C) 1,000 mg 1 g PO DAILY 90 days #90 tabs 10/29/23 Unknown Rx tablet (Vitamin C) calcium carbonate 500 mg-vitamin 1 tab PO DAILY 90 days #90 tabs 10/29/23 Unknown Rx D3 15 mcg (600 unit) tablet (Os-Mata 500 + D3) cephalexin 500 mg capsule 500 mg PO TID 2 weeks #42 caps 10/29/23 Unknown Rx colchicine 0.6 mg tablet 0.6 mg PO BID 10/29/23 10/29/23 History docusate sodium 100 mg capsule 100 mg PO DAILY 10 days #10 caps 10/29/23 Unknown Rx (Colace) gabapentin 100 mg capsule 100 mg PO TID 10/29/23 10/29/23 History naproxen 500 mg tablet 500 mg PO BID 10/29/23 10/29/23 History omeprazole 20 mg capsule,delayed 20 mg PO DAILY 10/29/23 10/29/23 History release oxycodone-acetaminophen 5 mg-325 1 tab PO Q6H PRN pain 7 days #28 10/29/23 Unknown Rx mg tablet (Percocet) tabs potassium chloride 20 mEq 20 meq PO DAILY 10/29/23 10/29/23 History tablet,extended release(part/cryst) prednisone 10 mg tablet See Taper PO DAILY 10/29/23 10/29/23 History ropinirole 0.5 mg tablet 0.5 mg PO BID 10/29/23 10/29/23 History Allergy/AdvReac Type Severity Reaction Status Date / Time No Known Allergies Allergy Verified 10/29/23 16:11 Surgical History no surgical history Social History Smoking Status: Unknown if ever smoked Physical Exam Narrative Vascular: DP and PT pulses palpable. CFT brisk. Evidence of erythema or proximal streaking to left hallux. Skin temperature great is warm to warm from proximal ankle to distal digit with focal increase appreciated to the left hallux. Nonpitting edema appreciated to left hallux. Neurologic: Light touch intact. Patient response to painful stimuli. Dermatologic: Evidence of small full-thickness ulceration secondary to laceration from a foreign body to the medial aspect of the left hallux. Musculoskeletal: Muscle strength is 5/5 in all quadrants. Mild to moderate [place] tenderness appreciated to the medial aspect of the left hallux. No pain with calf pressure.
--- NOTE | 2023-10-29 18:36 | OP.PCM_ITS ---
Problems Associated Problem List Diagnoses (1) Laceration of left foot with foreign body: (2) Non-pressure chronic ulcer of other part of left foot with fat layer exposed: (3) Cellulitis of great toe of left foot: Report of Operation Date of Procedure: 10/29/23 Pre-Operative Diagnosis: 1. Laceration with foreign body, left hallux 2. Full-thickness ulceration, left hallux 3. Cellulitis, left hallux Post-Operative Diagnosis: 1. Laceration with foreign body, left hallux 2. Full-thickness ulceration, left hallux 3. Cellulitis, left hallux Surgery/Procedure Performed:: 1. Foreign body removal, left hallux 2. Delayed primary closure, left hallux Description of Surgical Findings:: 1. Complete removal of foreign body. 2. Closure of full-thickness ulceration. Surgeon: Devang Thompson resident care associate: Nallely Carmen Type of Anesthesia: Local and MAC Anesthesiologist: Alfonso Hawthorne Special Medications: Per anesthesia Specimen's removed: 1. Metallic foreign body, left hallux Drains: None Estimated Blood Loss (mL): 30 mL Fluids Replaced: Per anesthesia Description of Procedure: Indications For Operation: Mr. Juarez is a 63-year-old male who was who was seen at the emergency department today at [facility] for retained foreign body and ulcer to the left great toe. Patient was seen by his primary doctor who was concerned for gout and put the patient on antigout medication then ordered a foot x-ray. After the x-ray was obtained the patient showed evidence of metallic foreign body to the level of the hallux. Patient's presented to the emergency department today for worsening pain and increased redness and swelling to the left great toe. Only treatment thus far was from his primary doctor. Once in the emergency department today, podiatry was consulted, Dr. Thompson suggested foreign body removal with delayed primary closure of the left hallux. The patient was agreeable and educated in all risk and benefits. Due to concern for deep tissue infection, cellulitis and retained foreign body had been necessary at this time to take the patient to the operating room to perform removal of foreign body with delayed primary closure to the left hallux to help relieve his constant pain. The nature of the problem, anticipated procedures, postop recovery/convalences and risk/complications include but not limited to infection, wound healing complications, digital amputation, hypertrophic scarring, numbness, tingling, chronic pain, CRPS, over and under correction, recurrence of deformity, DVT and or PE and the need for further surgery have been discussed in great detail with the patient. All questions have been answered to the patient's satisfaction. There are no guarantees given as to the outcome of the procedure. Description of Procedure: Under mild sedation, the patient was brought into the operating room and placed on the operating table in supine position. Once the patient was under monitored anesthesia care anesthesia with laryngeal mask airway, the left lower extremity was blocked using approximately 20 cc 0.5% Marcaine plain. Next, a well-padded calf tourniquet was applied to the left lower extremity. Next, the left lower extremity was prepped and draped in normal aseptic manner. Next, a timeout was then undertaken verifying the correct patient, extremity, visibility of preoperative markings, availability of the equipment. Next, attention was directed to the left lower extremity. Using a 4 inch Esmarch, left lower extremity was exsanguinated and elevated to 60 degrees for 1 minute. Procedure #1: Removal of retained foreign body, left hallux (CPT code: 73831) Next, attention was directed to the level of the hallux. Using mini C-arm fluoroscopy identification of the foreign body was observed. There showed evidence of possible penetration into the bone as well as increase in swelling which was concerning for possible laceration to one of the deep venous/arterial structures of the left hallux. The incision was marked out equidistant across the medial aspect the left hallux. Using a #15 blade, a full-thickness incision down to bone was done with continue sharp dissection around the dorsal and plantar aspect of the base of the proximal phalanx. Using mini C arm fluoroscop y, the foreign body was noted and removed and passed the back table for gross pathology. After removal of foreign body there showed evidence of venous bleeding which was cauterized as necessary. Now, the tourniquet was deflated and reperfusion was noted to the left lower extremity instantly. Compression was used for hemostasis and no additional bleeding was noted. Procedure #2: Delayed primary closure, left hallux (CPT code: 31627) Next, attention was directed to the ulceration/incision to the medial aspect of the left hallux. Incision/ulceration was flushed with copious normal saline. Due to the concern for deep tissue infection cultures were taken past back table to be sent off for microbiology and culture and sensitivity. Again the ulceration/incision was flushed with copious vidal of normal saline. There is no evidence of any purulent drainage prior during or after cleaning/irrigation of the incision/ulceration to the left hallux. The deep layer was reapproximated and closed with 3-0 Monocryl in buried suture technique. The skin was reapproximated closed using 3-0 nylon in simple interrupted suture technique. The left lower extremities were cleaned and patted dry. The incision was dressed with Betadine soaked Adaptic, dry sterile dressing and a single-layer Cardenas compression bandage was applied to the foot and ankle. The patient tolerated the procedure and anesthesia well and apparent satisfactory condition and was transported to the PACU for further monitoring prior to discharge home. Vital signs stable and vascular status intact to all digits bilateral. Post Operative Plan: Weightbearing: Partial weightbearing left lower extremity with surgical shoe. Full weightbearing right lower extremity. Antibiotics: 2 g Ancef through the IV DVT Prophylaxis: Not needed for this procedure Hubbard: None Dressing: Betadine soaked Adaptic, dry sterile dressing single-layer Cardenas compression bandage X-Rays: Post-operative films taken on the operating room, foreign body completely removed. Pain Medication: Percocet 5/325 Follow-up: The patient will be discharged on 500 mg 3 times daily Keflex to be taken for 2 weeks secondary to cellulitis of the left hallux. Patient will follow-up 1 week in private office with Dr. Thompson for evaluation after surgery. Grafts/Implants Used: None Complications None Admit VTE Documentation VTE Present on Admission: No VTE Mechan Device Prophylaxis: SCD's VTE Pharm Prophylaxis ordered?: No Reason prophylaxis not ordered:: Procedure Not Indicated
[2023-10-29] MEDS: Bupivacaine 0.5% PF 10 ML VIAL (18:51)
--- NOTE | 2023-10-29 19:37 | EKG12_ITS ---
Test Reason : IRREG HR Blood Pressure : / mmHG Vent. Rate : 074 BPM Atrial Rate : 074 BPM P-R Int : 164 ms QRS Dur : 142 ms QT Int : 400 ms P-R-T Axes : 058 -79 012 degrees QTc Int : 444 ms Sinus rhythm with Premature supraventricular complexes Right bundle branch block Left anterior fascicular block Bifascicular block Abnormal ECG When compared with ECG of 05-MAY-2007 09:32, Premature supraventricular complexes are now Present (RBBB and left anterior fascicular block) is now Present Confirmed by Randy Garza ([id number]), medical transcription editor FAUSTINO CUBA ([id number]) on 11/01/2023 10:42:16 AM Referred By: ZEB Confirmed By:Randy Garza
--- NOTE | 2023-10-29 20:01 | PCM.POST.ANE ---
Anesthesia: Postop Eval I Current Vital Signs Temperature: 97.3 F Pulse Rate: 78 Blood Pressure: 146/85 Respiratory Rate: 17 Pulse Ox: 96 Assessment Airway patent: Yes Spontaneous unlabored respirations: Yes nausea: No Vomiting: No Anesthesia Complication: No Fluid Hydration Crystalloid volume administer (ml): 400 Total IV fluid infused: 400 Progress Note Anesthesia document: Postop Eval 1 completed: Yes
--- NOTE | 2023-10-29 20:03 | POSTOPAN2_ITS ---
Anesthesia Postop Eval I Sum Postop Eval Completion status Anesthesia document: Postop Eval 1 completed: Yes Anesthesia Postop Eval I Summary Anesthesia Postop Eval I Summary: Anesthesia Postop Eval I: Assessment Summary Airway patent Yes 10/29/23 20:01 RESEARCH [email or web address] Spontaneous unlabored Yes 10/29/23 20:01 RESEARCH [email or web address] respirations Mental status nausea No 10/29/23 20:01 RESEARCH [email or web address] Vomiting No 10/29/23 20:01 RESEARCH [email or web address] Anesthesia Postop Eval I: Fluid Summary Crystalloid volume administer 400 10/29/23 20:01 RESEARCH [email or web address] (ml) Colloids volume administered ( ml) Blood Product volume administered (ml) Total IV fluid infused 400 10/29/23 20:01 RESEARCH PROGRAM [email or web address] Anesthesia Postop Eval I: Summary Notes Anesthesia Complication No 10/29/23 20:01 RESEARCH PROGRAM [email or web address] Anesthesia Complication Comment: Post-operative progress note Anesthesia: Postop Eval II Evaluation Mental status: Awake and Calm Pain Level: 0 nausea: No Vomiting: No
--- NOTE | 2023-10-29 20:03 | PCM.POSTANE2 ---
Anesthesia Postop Eval I Sum Postop Eval Completion status Anesthesia document: Postop Eval 1 completed: Yes Anesthesia Postop Eval I Summary Anesthesia Postop Eval I Summary: Anesthesia Postop Eval I: Assessment Summary Airway patent Yes 10/29/23 20:01 [email or web address] Spontaneous unlabored Yes 10/29/23 20:01 [email or web address] respirations Mental status nausea No 10/29/23 20:01 [email or web address] Vomiting No 10/29/23 20:01 [email or web address] Anesthesia Postop Eval I: Fluid Summary Crystalloid volume administer 400 10/29/23 20:01 [email or web address] (ml) Colloids volume administered ( ml) Blood Product volume administered (ml) Total IV fluid infused 400 10/29/23 20:01 [email or web address] Anesthesia Postop Eval I: Summary Notes Anesthesia Complication No 10/29/23 20:01 [email or web address] Anesthesia Complication Comment: Post-operative progress note Anesthesia: Postop Eval II Evaluation Mental status: Awake and Calm Pain Level: 0 nausea: No Vomiting: No
[2023-10-29 20:32] LABS: Troponin-I HS 6 pg/mL (3.0-78.0)
== END 2023-10-29 21:00 | disposition home or self-care (01) ==
LOC: ED 11:53 → SDC 11:56
PROVIDERS: Anesthesiology; Emergency Provider Emergency Medicine; PCP Family Medicine Geriatric Medicine; Visit Provider Podiatrist Foot & Ankle Surgery
PROC: (CPT 28193; principal; 2023-10-29 16:45)
DX: S90.452A Superficial foreign body, left great toe, initial encounter (principal); L97.529 Non-pressure chronic ulcer of other part of left foot with unspecified severity; L03.116 Cellulitis of left lower limb; I10 Essential (primary) hypertension; E78.5 Hyperlipidemia, unspecified; S91.312A Laceration without foreign body, left foot, initial encounter; Z79.51 Long term (current) use of inhaled steroids; Z79.899 Other long term (current) drug therapy; X58.XXXA Exposure to other specified factors, initial encounter
CPT/HCPCS: 28193; 13160; 01470; 73620; 76000; 84484; 87070; 87075; 87205; 88300; 90715; 93005; 99284; J7030; J7120; A4216

== ENCOUNTER → 2024-04-18 | Outpatient (CLI) | payer MEDICARE, MEDICAID, SELFPAY ==
--- NOTE | 2024-04-18 12:30 | MRI_ITS ---
STUDY: MRI BRAIN WITH AND WITHOUT CONTRAST (ATTENTION INTERNAL AUDITORY CANALS - I.A.C.''s) REASON FOR EXAM: Male, 64 years old. ASYMMETRIC HEARING LOSS TECHNIQUE: Standardized multiplanar fat and water weighted pulse sequences were obtained. IV 17ml clariscan was administered for the contrast portion of the examination. COMPARISON: None. FINDINGS: Normal bilateral temporal bones. Normal bilateral internal auditory canals. There is no demonstrated intracanalicular or cisternal vestibular schwannoma (acoustic neuroma). There is no enhancement of the bilateral VIIth or VIIIth cranial nerves. Normal bilateral cochlea, vestibules and semicircular canals. Normal size of the ventricles and extra-axial spaces for the patient''s age. Normal white matter tracts of the supratentorial brain. There is no evidence for recent intracranial ischemia or other cause of cytotoxic edema on diffusion weighted imaging (DWI). Normal bilateral basal ganglia. Normal thalami. Normal flow voids within the major intracranial circulation suggesting patency by spin echo criteria. Normal venous enhancement. There is no enhancing intra-axial or extra-axial abnormality. There is no extra-axial fluid accumulation. Normal sella turcica, pituitary gland, infundibular stalk, optic chiasm and hypothalamus. Normal tectal plate and pineal gland. Normal midbrain, lachelle and medulla. Normal cerebellum. Normal basal cisterns. There are bilateral ocular lens implants with otherwise normal intraorbital contents. Normal visualized paranasal sinuses. Normal calvarium and skull base. Normal visualized soft tissue structures. Normal visualized upper cervical spine. MRI/Brain W/WO Contrast IMPRESSION: Normal unenhanced and enhanced MRI of the bilateral internal auditory canals (I.A.C''s). Electronically Signed: Tramaine Reeves MD at 13:24 EST ,
[2024-04-18 12:59] LABS: CREATININE FINGERSTICK < 1.0 mg/dL (0.70-1.30); EGFR FINGERSTICK > 60.0000 mL/min (>60)
== END | disposition home or self-care (01) ==
LOC: MRI 12:19
PROVIDERS: PCP Family Medicine Geriatric Medicine; Referring Provider Otolaryngology; Visit Provider Otolaryngology
DX: H90.3 Sensorineural hearing loss, bilateral (principal)
CPT/HCPCS: 70553; A9575

== ENCOUNTER → 2024-05-30 | Outpatient (CLI) | payer MEDICARE, MEDICAID, SELFPAY ==
[2024-05-30 13:38] LABS: Absolute Lymphocyte Count 1.22 X10^3/uL (0.83-4.51); Absolute Neutrophil Count 3.2 X10^3/uL (2.0-7.7); Basophil# 0.08 X10^3/uL; Basophil% 1.6 % (0-1); Eosinophil# 0.15 X10^3/uL; Eosinophils% 2.9 % (0-5); Hematocrit 43.7 % (40-54); Hemoglobin 15.1 g/dL (13.0-16.5); Lymphocyte # 1.22 X10^3/ul (0.83-4.51); Lymphocyte % 23.7 % (19-41); Mean Corp Hgb Conc 34.6 g/dL (32-36); Mean Corpuscular Hgb 28.4 pg (27.0-32.0); Mean Corpuscular Volume 82.1 fL (80-94); Monocyte# 0.46 X10^3/uL; Monocyte% 8.9 % (0-10); NRBC Flagged by Analyzer 0 % (0-5); Neutrophil # 3.21 X10^3/uL (2.7-7.7); Neutrophil % 62.3 % (47-70); Platelet Count 307 K/mm3 (150-450); RBC Distribution Width CV 13.7 % (11.6-14.6); RBC Distribution Width SD 39.8 fl (35.1-43.9); Red Blood Count 5.32 M/mm3 (4.6-6.2); White Blood Count 5.2 K/mm3 (4.4-11.0)
[2024-05-30 14:23] LABS: ALB/GLOB Ratio 1.2 RATIO (0.9-2.4); AST(SGOT) 13 U/L (15-37); Alanine Aminotransfer ALT/SGPT 33 U/L (16-61); Albumin, Serum 3.8 g/dL (3.2-5.0); Alkaline Phosphatase 94 U/L (45-117); Anion Gap 4 (5-15); BUN 22 mg/dL (7-18); BUN/Creat Ratio 26.5 RATIO (10-20); Chloride 110 mmol/L (98-107); Cholesterol 127 mg/dL (200); Creatinine, Serum 0.83 mg/dL (0.70-1.30); EST Glomerular Filtration Rate 99 mL/min (>60); Est Glom Filt Rate - Afr Amer 120 mL/min (>60); Globulin 3.1 g/dL (2.2-4.2); Glucose 97 mg/dL (74-106); High Density Lipoprotein 30 mg/dL; PSA,Total - Annual Screen 0.86 ng/mL (0.00-4.00); Potassium 3.7 mmol/L (3.5-5.1); Protein, Total 6.9 g/dL (6.4-8.2); Sodium Level 143 mmol/L (136-145); Triglycerides 159 mg/dL; Uric Acid 6.3 mg/dL (3.5-7.2); Very Low Density Lipoprotein 32 mg/dL (5-40)
== END | disposition home or self-care (01) ==
LOC: LAB 12:30
PROVIDERS: PCP Family Medicine Geriatric Medicine; Referring Provider Family Medicine Geriatric Medicine; Visit Provider Family Medicine Geriatric Medicine
DX: I10 Essential (primary) hypertension (principal); M10.9 Gout, unspecified; E78.5 Hyperlipidemia, unspecified; Z12.5 Encounter for screening for malignant neoplasm of prostate
CPT/HCPCS: 36415; 80053; 80061; 84153; 84443; 84550; 85025; G0103

== ENCOUNTER 2024-06-06 13:00 | Outpatient (RCR) | payer MEDICARE, MEDICAID, SELFPAY ==
--- NOTE | 2024-04-11 11:09 | HP.PTEVAL_ITS ---
Patient's Visit Information Visit Information Visit Information: SERA RAMSEY is a 64 year old M referred to Physical Therapy by Dr. Devang Thompson DPM with a diagnosis of Cerebral palsy/gait training. Date of Evaluation: 04/11/24 Physical Therapist: DYANA Conway Visit Plan Frequency: 3x /Week Duration: 6 Weeks Plan: 3X/ week for 6 week to learn how to don/doff his new AFO braces as pt l juan alone, gait training to increase stride length and decrease R toe drag, improve sit to stand transfers to improve safety with sit to stand with HEP if needed. Subjective Subjective: Pt lives alone. He has to put on his own braces every morning. He has had ankle braces for years but they have worn out and now he just got AFO's and needs to learn how to put them on and off and how to walk with them. He lives in a one story home. He uses a standard walker and started to use that about a year ago. Dr wants him t use the walker multimedia developer. He does not drive. He has a mud mixer operator and she was able to give me some subjective information. No stairs to get in the home. He is worried that he won't be able to sit to stand with the new braces on. He fell last week and he got up out of his chair and his leg buckled. He reports that he got back up but had to use his arms on something but his feet kept slipping out from under him but he eventually got it. Objective Objective: Gait: walks with just ankle braces with a standard walker with a lot of pressure through his UE's to help advance his LE's. His R leg step length is shorter than the L leg. He walks better with new AFO's. Still tends to drag R foot on occ and R swing leg is not as far as the L swing leg and still very heavy support. He has a hard time sliding his foot into the AFO all the way and hard time seeing the straps to get them fastened the right way. Pt not able to put on or off the new AFO's. He struggles with bending FW to get to the straps and can't see to get the braces on or off. Sit to stand: on first attempt but has to use his UE mostly and hard time to get feet under him and retro balance until can get upright. He tends to push the walker away and twisting to sit down in the seat which is not safe. Balance/Special Test Scores Lower Extremity Functional Score: 38 Goals Goal 1:: Indep in putting on and off his new AFO's using any device to help that is needed (ie long shoe horn) Goal Time Frame: 6-8 Weeks Goal 2:: Be able to walk back to the treatment room with less UE support on the walker Goal Time Frame: 6-8 Weeks Goal 3:: Be able to to walk with the walker with increase stride on the R leg and decrease toe drag on the R Goal Time Frame: 6-8 Weeks Goal 4:: Be able to sit to stand on first attempt with good weight shift fw using B UE's and good balance X 5 times in a row with SBA Goal Time Frame: 6-8 Weeks Rehabilitation Potential Rehabilitation Potential: Good Anticipated Interventions Patient/Client Instruction: Educate patient on: Condition and Plan of Care For the Purpose of:: To improve muscle performance and motor function, To improve ability to perform ADL's, To increase tolerance to activity/condition/position, To improve performance and independence with ADL's, To decrease level of supervision to perform tasks, To improve ability of physical actions for home/community/work/leisure, To improve gait and locomotor functions, To improve endurance, To improve balance and To improve safety with gait Therapeutic Exercise to Include: Strength training, Endurance training, Body mechanics, Flexibilty training, Gait and locomotor training and Neuromotor development For the Purpose of:: To decrease pain, To increase ROM, To improve muscle performance and motor function, To improve ability to perform ADL's, To increase tolerance to activity/condition/position, To improve performance and independence with ADL's, To decrease level of supervision to perform tasks, To improve ability of physical actions for home/community/work/leisure, To improve gait and locomotor functions, To improve endurance, To improve balance and To improve safety with gait Functional Training to Include: ADL Training and Gait training Comments: don/ doff AFO's indep For the Purpose of:: To improve gait and locomotor functions and To improve safety with gait Text: Thank you for the opportunity to evaluate your patient. For Medicare and Medicare HMO plans, please review the plan of care and approve it. It will need to be FAXED BACK to us at [phone] for Medicare purposes. For Medicare only, by signing this I certify the plan of care. Please let me know if there are questions or concerns regarding this plan of care. Physician Signature: Date:_
--- NOTE | 2024-08-23 10:10 | HP.PT.NRP ---
Patient Information Patient Information: SERA RAMSEY was seen in my office for initial evaluation on 04/11/24. The following Plan of Care was established for this patient: POC Established Initial Frequency: 3x /Week Initial Duration: 6 Weeks Anticipated Interventions Patient/Client Instruction: Educate patient on: Condition and Plan of Care For the Purpose of:: To improve muscle performance and motor function, To improve ability to perform ADL's, To increase tolerance to activity/condition/position, To improve performance and independence with ADL's, To decrease level of supervision to perform tasks, To improve ability of physical actions for home/community/work/leisure, To improve gait and locomotor functions, To improve endurance, To improve balance and To improve safety with gait Therapeutic Exercise to Include: Strength training, Endurance training, Body mechanics, Flexibilty training, Gait and locomotor training and Neuromotor development For the Purpose of:: To decrease pain, To increase ROM, To improve muscle performance and motor function, To improve ability to perform ADL's, To increase tolerance to activity/condition/position, To improve performance and independence with ADL's, To decrease level of supervision to perform tasks, To improve ability of physical actions for home/community/work/leisure, To improve gait and locomotor functions, To improve endurance, To improve balance and To improve safety with gait Functional Training to Include: ADL Training and Gait training Comments: catherine/ tatianna WHEELER's indep For the Purpose of:: To improve gait and locomotor functions and To improve safety with gait Last Seen Last Seen: This patient was last seen in our office 06/06/24. Pertinent comments regarding their Physical therapy will appear below: [facility]ARY PT as pt has not scheduled additional appts At this point I will be discontinuing this patient from physical therapy. I would be happy to see this patient again in the future if found appropriate by the physician. Thank you! Layne Hager, DYANA Balance/Gait/Functional tests Balance/Special Test Scores Lower Extremity Functional Score: 38
== END 2024-06-06 19:00 | disposition home or self-care (01) ==
LOC: PT 13:00
PROVIDERS: PCP Family Medicine Geriatric Medicine; Referring Provider Podiatrist Foot & Ankle Surgery; Visit Provider Podiatrist Foot & Ankle Surgery
DX: G80.9 Cerebral palsy, unspecified (principal)
CPT/HCPCS: 97162; 97530

== ENCOUNTER 2024-08-01 06:53 | Emergency (ER) | payer MEDICARE, MEDICAID, SELFPAY ==
[2024-08-01 06:53] VITALS: BP 167/111; PULSE 79; RESP 16; TEMP 36.6; O2SAT 96; BMI 30.7
--- NOTE | 2024-08-01 07:02 | RAD_ITS ---
EXAM: Foot minimum three views CLINICAL HISTORY: Injury/pain TECHNIQUE: Three views right foot FINDINGS: Obliquely oriented fracture deformity of the 4th proximal phalanx may be nonacute, clinically correlate. No other fracture identified. No dislocation. Dorsal forefoot soft tissue swelling. Posterior ankle soft tissue calcifications. Vascular calcifications noted. RAD/Foot min 3 Views IMPRESSION: Obliquely oriented fracture deformity of the 4th proximal phalanx may be nonacu te, clinically correlate. Dorsal forefoot soft tissue swelling. Reading Location: [id number]
--- NOTE | 2024-08-01 07:02 | EX.ED.GENINJ ---
HPI History of Present Illness Chief Complaint: Edema Detail of Chief Complaint: Injury to right foot not edema Informant: patient and other Onset/Context/Timing Onset: Today Mechanism/Context: Blunt Injury Location of pain/injuries: Right foot Location: Right foot Current Severity: Mild Maximum Severity: Moderate Worsened by: Weight and palpation Relieved by: Rest Associated Symptoms Associated Symptoms: Positive for Parasthesias (Chronic history of neuropathy); Negative for Weakness, Loss of function or Inability to ambulate Narrative Narrative: Patient is a 64-year-old male. He has history of GERD, neuropathy, gout, BPH, hyperlipidemia and hypertension who presents with injury to his right foot. He does not have edema. He has chronic edema due to sitting secondary to cerebral palsy. He denies symptoms of orthopnea, PND or congestive heart failure. Patient complains of pain midfoot. He denies toe pain. He is seen by podiatry for his footcare. Prior similar symptoms: No Recent Illness/Hospitalization: No PFSH PFSH Medical History Cerebral palsy Scoliosis HLD (hyperlipidemia) BPH (benign prostatic hyperplasia) HTN (hypertension) Home Medications ?Medication ?Instructions ?Recorded ?Last Taken ?Type metoprolol tartrate 25 mg tablet 25 mg PO BID 04/06/14 10/29/23 History pravastatin 40 mg tablet 40 mg PO DAILY 12/20/20 10/29/23 History tamsulosin 0.4 mg capsule 0.4 mg PO DAILY 12/20/20 10/29/23 History albuterol sulfate 90 mcg/actuation 2 puff inhalation Q4H PRN 10/29/23 Unknown History aerosol inhaler shortness of breath or wheezing ascorbic acid (vitamin C) 1,000 mg 1 g PO DAILY 90 days #90 tabs 10/29/23 Unknown Rx tablet (Vitamin C) calcium 500 mg (as 1 tab PO DAILY 90 days #90 tabs 10/29/23 Unknown Rx carbonate)-vitamin D3 15 mcg (600 unit) tablet (Os-Mata 500 + D3) cephalexin 500 mg capsule 500 mg PO TID 2 weeks #42 caps 10/29/23 Unknown Rx colchicine 0.6 mg tablet 0.6 mg PO BID 10/29/23 10/29/23 History docusate sodium 100 mg capsule 100 mg PO DAILY 10 days #10 caps 10/29/23 Unknown Rx (Colace) gabapentin 100 mg capsule 100 mg PO TID 10/29/23 10/29/23 History naproxen 500 mg tablet 500 mg PO BID 10/29/23 10/29/23 History omeprazole 20 mg capsule,delayed 20 mg PO DAILY 10/29/23 10/29/23 History release oxycodone-acetaminophen 5 mg-325 1 tab PO Q6H PRN pain 7 days #28 10/29/23 Unknown Rx mg tablet (Percocet) tabs potassium chloride 20 mEq 20 meq PO DAILY 10/29/23 10/29/23 History tablet,extended release(part/cryst) prednisone 10 mg tablet See Taper PO DAILY 10/29/23 10/29/23 History ropinirole 0.5 mg tablet 0.5 mg PO BID 10/29/23 10/29/23 History naproxen 500 mg tablet 500 mg PO BID #14 tabs 08/01/24 Unknown Rx Allergy/AdvReac Type Severity Reaction Status Date / Time No Known Allergies Allergy Verified 08/01/24 06:53 Social History Smoking Status: Unknown if ever smoked ROS ROS ED Cardiovascular Cardiovascular: Reports other Details: Denies orthopnea. ; Denies palpitations, paroxysmal nocturnal dyspnea or racing heartbeat Respiratory/Chest Respiratory/Chest: Denies paroxysmal nocturnal dyspnea Neurologic Neurologic: Reports paresthesias; Denies weakness Hematologic/Lymphatic Hematologic/Lymphatic: Denies easy bleeding or easy bruising EXAM Physical Exam Const Vital Signs: 08/01/24 06:53 Temperature 98 F Temperature Source Oral Pulse Rate 79 Respiratory Rate 16 Blood Pressure 167/111 H Blood Pressure Mean 129 Pulse Ox 96 Positive well nourished and well developed Constitutional Narrative: BMI 30.7. General Appearance ED: well developed and NAD HEENT HEENT Narrative: Head is a traumatic and normocephalic. Ears normal. atraumatic Eyes PERRL and EOMs intact bilaterally Neck full ROM Resp normal respiratory effort Cardio regular rhythm Rate: regular rate Extremity Negative for normal to inspection Extremity Narrative: Patient has swelling of his feet which are pitting. He has thickened toenails. There is hair on his toes. PT pulses palpable bilateral. DP is faintly positive due to the edema. He has hypersensitivity to light touch most likely due to his neuropathy. There appears to be bruising near the head of the first metatarsal. He has pain palpation over the fourth, third and second metatarsal as well as the head of the first. There is no swelling or ecchymosis of the heel. General Extremety ED: Yes edema General Extremity: edema Neuro oriented x3, CN's II-XII intact bilaterally and moves all extremities Sensorium / Orientation: alert Psych mental status grossly normal and thought process normal Skin Skin Narrative: Venous stasis changes of his feet and lower extremities. MDM MDM MDM Narrative Medical decision making narrative: With history of pain after trauma will obtain x-ray to evaluate for fracture versus strain versus contusion. History & Record Review Additional record(s) reviewed:: Prior outpatient record (Worker's Comp. evaluation for facial laceration. This is after ER visit for initial repair.) and Prior ED visit (Last ER visit was October 2023 for cellulitis of toe/foot.) Radiography Chest X-Ray - ED: Read by ED Physician (Three-view x-ray of the foot was obtained. There is calcification of the Achilles tendon. There is evidence of a hallux deformity. There is no evidence of fracture, subluxation or dislocation.) Treatment and Re-Evaluation Narrative: Patient was informed of x-ray results. Since he has no allergies and no contraindication to NSAIDs NSAIDs were prescribed. Discharge Plan Triage Chief Complaint: Edema Other Complaint: Fall ED Provider: Anders Tatum Dx/Rx/DC Orders Clinical Impression: Strain of right foot, Neuropathy, Pedal edema, Cerebral palsy, Elevated blood pressure reading with diagnosis of hypertension Instructions: ED Muscle Strain, Extremity Prescriptions: New naproxen 500 mg tablet 500 mg PO BID Qty: 14 0RF No Action metoprolol tartrate 25 MG tablet 25 mg PO BID Patient Comments: pravastatin 40 mg Tablet 40 mg PO DAILY tamsulosin 0.4 mg Capsule 0.4 mg PO DAILY albuterol sulfate 90 mcg/actuation HFA aerosol inhaler 2 puff inhalation Q4H PRN (Reason: shortness of breath or wheezing) colchicine 0.6 mg tablet 0.6 mg PO BID prednisone 10 mg tablet See Taper PO DAILY Taper: Prednisone Taper 40 mg WITH BREAKFAST for 3 Days 30 mg WITH BREAKFAST for 3 Days 20 mg WITH BREAKFAST for 3 Days 10 mg WITH BREAKFAST for 3 Days Patient Comments: STARTED YESTERDAY 10/28/23, STILL TAKING 40MG ONCE DAILY potassium chloride 20 mEq tablet,ER particles/crystals 20 meq PO DAILY omeprazole 20 mg capsule,delayed release(DR/EC) 20 mg PO DAILY gabapentin 100 mg capsule 100 mg PO TID naproxen 500 mg tablet 500 mg PO BID ropinirole 0.5 mg tablet 0.5 mg PO BID oxycodone-acetaminophen [Percocet] 5-325 mg tablet 1 tab PO Q6H PRN (Reason: pain) 7 Days Qty: 28 0RF docusate sodium [Colace] 100 mg capsule 100 mg PO DAILY 10 Days Qty: 10 0RF calcium carbonate-vitamin D3 [Os-Mata 500 + D3] 500 mg-15 mcg (600 unit) tablet 1 tab PO DAILY 90 Days Qty: 90 0RF ascorbic acid (vitamin C) [Vitamin C] 1,000 mg tablet 1 g PO DAILY 90 Days Qty: 90 0RF cephalexin 500 mg capsule 500 mg PO TID 14 Days Qty: 42 0RF Primary Care Provider: Claudio Martinez Chi Referrals: Claudio Martinez Chi, MD [Primary Care Provider] - 1 Week if not improving Print Language: Mauritanian Disposition Disposition: Home, Self Care
[2024-08-01] MEDS: Naproxen 500 MG Tablet PO (07:21)
== END 2024-08-01 07:34 | disposition home or self-care (01) ==
PROVIDERS: Emergency Provider Emergency Medicine; PCP Family Medicine Geriatric Medicine; Visit Provider Emergency Medicine
DX: S96.911A Strain of unspecified muscle and tendon at ankle and foot level, right foot, initial encounter (principal); G80.9 Cerebral palsy, unspecified; X58.XXXA Exposure to other specified factors, initial encounter; R60.0 Localized edema; I10 Essential (primary) hypertension; G62.9 Polyneuropathy, unspecified; K21.9 Gastro-esophageal reflux disease without esophagitis; M10.9 Gout, unspecified; E78.5 Hyperlipidemia, unspecified; N40.0 Benign prostatic hyperplasia without lower urinary tract symptoms; M41.9 Scoliosis, unspecified; Z79.899 Other long term (current) drug therapy
CPT/HCPCS: 73630; 99285